=== PATIENT | female | born 1975 | race Caucasian/White ===

== ENCOUNTER 2017-01-29 07:56 | Inpatient (IN) | payer OTHER ==
--- NOTE | ~2017-01-29 | TOC ---
Unit #: [id number] #: [id number] Patient: DAVID GONZALEZ [id number] [address] [address] [id number] I MR#: [id number] NAME: DAVID GONZALEZ ROOM: 57 Age: 41 Sex: F Admission Date: 01/29/2017 : 1975 Attending Physician: Sherif Pack M.D. Primary Care Physician: No Primary Care Physician TRANSFER OF CARE SUMMARY CONSULTANTS 1. Dr. Recio. 2. Dr. Lopez. 3. Dr. Prakash. ADMITTING DIAGNOSES 1. Hyperglycemia. 2. Unresponsive. FURTHER DIAGNOSES 1. Diabetic ketoacidosis. 2. End-stage renal disease. 3. Diabetes type 2, poorly controlled. 4. Hypertension. 5. Hyperlipidemia. HISTORY OF PRESENT ILLNESS The patient is a 41-year-old lady with a past medical history of diabetes, hypertension, hyperlipidemia, was brought to the emergency room mainly because she unresponsive at the home and was hyperglycemic. Apparently, she ran out of her insulin and she was not on insulin. In the initial hospital evaluation, her pH was noted to be 6.778 with a bicarbonate of 12.3, pCO2 of 12.3, and bicarbonate of 5. Her sugars were (1) . She was admitted to the ICU. She was intubated, started on the DKA protocol. Her creatinine was noted to be elevated. Renal was consulted. She ended up undergoing dialysis. She got a Shiley catheter placed and she is currently on dialysis. In the hospital course, she also had a bronchoscopy done. Cultures were all negative. At this point, we are trying to arrange for outpatient hemodialysis slot. Hepatitis panels were sent and we do not have an outpatient dialysis slot. Once we have a dialysis slot arranged, she will be discharged. Kindly note, a final discharge summary will be dictated by me or my colleagues at the time of actual discharge. Dictated by... Sherif Pack M.D. VALERIE/zoe TD: 02/06/2017 15:19 Unit #: [id number] #: [id number] Patient: DAVID GONZALEZ JOB #: [id number] TRANSFER OF CARE SUMMARY Page 1 of 1 X X TRANSFER OF CARE SUMMARY
--- NOTE | ~2017-01-29 | FU ---
[facility] Nutrition Therapy DATE: 02/03/17 Patient: DAVID GONZALEZ Physician: VIRIDIANA Address: [address] Room/Bed: [address] [place] [address], Zip: [place] [address] Admit Date: 01/29/17 Date of : [birth year] Height: 5 6 Weight: 231 105.2 NUTRITION MONITORING/FOLLOW-UP: Reason: Nutrition follow-up Anthropometrics: Ht: 5'6" Adm wt: 100 kg (220#) BMIL 35.5 Current wt: 105 kg (231#) Labs: Gluc 180, BUN 25, Creat 5.7, GFR 8.6, Ca++ 8.3, HgbA1c 10.9, POC 164 Meds: Levemir, Pepcid, Novolog, Zofran, NaCl, Levaquin I&O's: 218/2225, last BM 02/03 Skin: no skin issues noted Edema: BUE/BLE trace Assessment: Chart reviewed, events noted. Pt was transferred from ICU to / yesterday (02/02). Per VIDEO GAMES MECHANIC eval, pt is on a regular diet + nectar thick liquids. Pt reported not feeling well today and poor appetite. Pt reported consuming snack foods for VIDEO GAMES MECHANIC eval and feeling full/nauseous after. RD design intern encouraged slowly adding food back into diet as tolerated. RD design intern encouraged a Nepro shake, pt agreed. Pt had no diet questions at this time. Nutrition problem remains the same with new evidence. See recommendations below. Dx: Inadequate oral intake RT current condition, not feeling well AEB pt report. -ACTIVE Intervention: 1. Nepro BID 2. Consistent carb diet Monitoring, Evaluation and Goals: NOT MET 1. PO intake; consume >75% of meals and supplements 2. Labs; WNL 3. Weight; prevent unintentional weight loss, promote gradual weight loss Recommendations: 1. Please order Nepro shakes BID. 2. Recommend changing diet order to consistent carb d/t elevated blood glucose levels. Status: Pt is at a mild nutritional risk. [facility] Nutrition Therapy DATE: 02/03/17 Patient: DAVID GONZALEZ Physician: VIRIDIANA Address: [address] Room/Bed: [address] [place] [address], Zip: [place] [address] Admit Date: 01/29/17 Date of : [birth year] Height: 5 6 Weight: [address] will f/u per protocol. Respectfully, Nuria Tomlinson, Admin Prog Coord Paul Lawler MS, RD, LD [facility] and Nutrition[facility] cc: client file
--- NOTE | ~2017-01-29 | OR ---
Unit #: [id number] #: [id number] Patient: DAVID GONZALEZ [id number] [address] [address] [id number] I MR#: [id number] NAME: DAVID GONZALEZ ROOM: [facility] Date of Procedure: Admission Date: 01/29/2017 Surgeon: Cody Lopez M.D. : 1975 Attending Physician: Ana Rosa Fountain M.D. Primary Care Physician: No Primary Care Physician PROCEDURE OPERATIVE NOTE PROCEDURE PERFORMED Dialysis catheter placement. INDICATIONS Renal failure. PREPROCEDURE DIAGNOSIS Renal failure. POSTPROCEDURE DIAGNOSIS Renal failure. DETAIL OF PROCEDURE After placing patient in proper position, we prepped the right side of the neck with ChloraPrep with the use of all aseptic technique and modified Seldinger technique. Under ultrasound guidance, a 16 cm dialysis catheter placed in the right internal jugular vein. Patient tolerated procedure very well. No complications happened. Dictated by... Tra Daniels/zoe TD: 01/29/2017 16:50 JOB #: [id number] PROCEDURE OPERATIVE NOTE Page 1 of 1 X Cody Lopez MD X PROCEDURE OPERATIVE NOTE
--- NOTE | ~2017-01-29 | DS ---
Unit #: [id number] #: [id number] Patient: DAVID GONZALEZ [id number] [address] [place], [place] [address] [id number] Ronny MR#: [id number] NAME: DAVID GONZALEZ ROOM: 577 Age: 41 Sex: F Admission Date: 01/29/2017 : 1975 Discharge Date: Attending Physician: Sherif Pack M.D. DISCHARGE SUMMARY ADDENDUM DATE OF ANTICIPATED DISCHARGE February 09, 2017 Kindly note, I did an interim discharge summary a couple of days ago, and this is an addendum to the discharge summary. Today, I spoke with Nephrology attending, and I spoke with the cyanide case hardener. They are getting close to arranging for outpatient dialysis slot. Once the dialysis slot is arranged, will discharge her home. I spoke with patient at length and explained to her that she needs to follow with Nephrology and Endocrinology as an outpatient, and she needs to take her medications for diabetes and high blood pressure on a regular basis. She is clinically better. PHYSICAL EXAMINATION ON DAY OF DISCHARGE VITAL SIGNS: Temperature 97.9, pulse rate 65, respirations 16, and blood pressure 140/68. GENERAL: Patient is alert and oriented x3, lying in the bed in no acute distress. HEENT: Normocephalic and atraumatic. No icterus. Pupils are equal, round, and reactive to light and accommodation. Extraocular muscles intact. NECK: Supple. No JVD. HEART: S1 and S2, regular rate and rhythm. CHEST: Bilateral equal air entry, clear to auscultation. ABDOMEN: Soft and nontender. EXTREMITIES: No edema. Normal peripheral pulses. DISCHARGE MEDICATIONS 1. Levemir 15 units twice daily. 2. Aspart 5 units 3 times daily before meals. 3. Lasix 40 mg daily. 4. Pepcid 20 mg p.o. daily. 5. Nephrocaps 1 capsule p.o. daily. FOLLOWUP With dialysis, Nephrology, Endocrinology, and primary care as an outpatient once she is discharged. Unit #: [id number] #: [id number] Patient: DAVID GONZALEZ Total time spent in her care 35 minutes. Dictated by... Sherif Pack M.D. PS/am TD: 02/09/2017 21:46 JOB #: [id number] DISCHARGE SUMMARY Page 1 of 1 X X DISCHARGE SUMMARY
--- NOTE | ~2017-01-29 | CR72 ---
[facility] A Service of [facility] RADIOLOGY TEXT RESULTS PATIENT: DAVID GONZALEZ LOCATION: [address] : [birth year] UNIT #: [id number] AGE: [address]: Ana Rosa Fountain MD SEX: F ORDER DR: [id number] [facility] [address] [facility] [place] [facility]. [place], [place] [address] [id number] I MR#: [id number] Acc #: [id number] NAME: DAVID GONZALEZ : 1975 SEX: F STUDY DATE/TIME: 01/29/2017 9:07 UNIT: [facility] ROOM: [facility] STUDY DESCRIPTION: CR Chest Single View Portable Attending Physician: Ana Rosa Fountain M.D. Ordering Physician: Terrell Regalado D.O. Primary Care Physician: Primary Care Physician No MEDICAL IMAGING REPORT This report is preliminary unless electronic signature is present EXAM Portable chest one-view date of study 01/29/2017 COMPARISON None HISTORY Short of air and weakness for 1 day. FINDINGS Low lung volumes and borderline to mild cardiomegaly. Peripheral patchy consolidation in the left mid lung and probably as well as at right lateral lung base though that is at the margin of the exam. No pneumothorax. Dictated by... Viraj Mesa M.D. THIS IS AN ELECTRONICALLY VERIFIED REPORT Viraj Mesa M.D. at 01/29/2017 3:49 PM TEV/salomón TD: 01/29/2017 11:44 JOB #: [id number] MEDICAL IMAGING REPORT Page 1 of 1 COPY
--- NOTE | ~2017-01-29 | CR7 ---
[facility] A Service of [facility] RADIOLOGY TEXT RESULTS PATIENT: DAVID GONZALEZ LOCATION: [facility] 577-01 : [birth year] UNIT #: [id number] AGE: [address]: Sherif Pack MD SEX: F ORDER DR: [id number] [facility] [address] [facility] [address] [place], [place] [address] [id number] I MR#: [id number] Acc #: [id number] NAME: DAVID GONZALEZ : 1975 SEX: F STUDY DATE/TIME: 01/29/2017 14:42 UNIT: [facility] ROOM: [facility] STUDY DESCRIPTION: CR Abdomen Single AP View Attending Physician: Ana Rosa Fountain M.D. Ordering Physician: Cody Lopez M.D. Primary Care Physician: No Primary Care Physician MEDICAL IMAGING REPORT This report is preliminary unless electronic signature is present EXAM Supine radiograph of the abdomen 01/29/2017. HISTORY Dobbhoff tube placement today. FINDINGS Supine radiograph of the abdomen is presented. The flexible feeding tube terminates at the anticipated location of duodenal bulb or proximal second portion of duodenum. Lung bases unremarkable. The bowel gas pattern normal. No free air. Bony structures unremarkable. Dictated by... Juan José Epps M.D. THIS IS AN ELECTRONICALLY VERIFIED REPORT Juan José Epps M.D. at 02/03/2017 10:59 AM NATALIE/kaz TD: 01/29/2017 16:21 JOB #: [id number] MEDICAL IMAGING REPORT Page 1 of 1 COPY
--- NOTE | ~2017-01-29 | US77 ---
[facility] A Service of [facility] & [facility] RADIOLOGY TEXT RESULTS PATIENT: DAVID GONZALEZ LOCATION: [facility] 577-01 : [birth year] UNIT #: [id number] AGE: [address]: Sherif Pack MD SEX: F ORDER DR: [id number] [facility] [address] [place], [place] [address] [id number] I MR#: [id number] Acc #: [id number] NAME: DAVID GONZALEZ : 1975 SEX: F STUDY DATE/TIME: 02/05/2017 15:08 UNIT: [facility] ROOM: [facility] STUDY DESCRIPTION: US Kidney Bilateral Complete Attending Physician: Sherif Pack M.D. Ordering Physician: Sherif Pack M.D. Primary Care Physician: No Primary Care Physician MEDICAL IMAGING REPORT This report is preliminary unless electronic signature is present EXAM Renal ultrasound 02/05/2017 HISTORY Acute renal failure, abnormal renal function tests. Elevated creatinine of 5.3. Abnormally low GFR of 9.4 on 02/05/2017, diabetic shock for 1 week. Benign essential hypertension, hyperlipidemia. FINDINGS The right kidney measures 14.9 cm while the left kidney measures 14.4 cm in longitudinal dimensions. There is no evidence of hydronephrosis or nephrolithiasis. No cystic or solid mass lesions were seen on either kidney and there is normal renal cortical echogenicity. Images of the bladder are normal. IMPRESSION 1. Negative renal ultrasound. 2. Images of the bladder are normal. Dictated by... Alvaro Cali M.D. THIS IS AN ELECTRONICALLY VERIFIED REPORT Alvaro Cali M.D. at 02/06/2017 3:38 PM ITZEL/juan mr TD: 02/05/2017 19:30 JOB #: [id number] MEDICAL IMAGING REPORT Page 1 of 1 COPY
--- NOTE | ~2017-01-29 | FU ---
[facility] Nutrition Therapy DATE: 02/10/17 Patient: DAVIDChiara GONZALEZ Physician: VIRIDIANA Address: [address] Room/Bed: [address] [place] [address], Zip: [place] [address] Admit Date: 01/29/17 Date of : [birth year] Height: 5 6 Weight: 221 100.5 NUTRITION MONITORING/FOLLOW-UP: Reason: PT SEEN FOR FOLLOW-UP DX: DIABETIC, DKA, AMS, JUNO Anthropometrics: 5'6", WT: 221# (100 KG), BMI: 35.7 -WEIGHTS HAVE BEEN STABLE SINCE ADMIT Labs: GLU: 238, CREAT: 5.7, ALB: 2.6, PHOS: 4.8, A1c: 10.8, GFR: 8.6 Meds: LEVEMIR, PEPCID, NOVOLOG, NEPHROCAPS, FUROSEMIDE I&O's: 480/2427 Skin: BLE + RLE TRACE EDEMA; FACE GENERALIZED EDEMA Estimated Nutrition Needs: INCREASED PROTEIN NEEDS 2' PT ON HD Assessment: CHART REVIEWED AND EVENTS NOTED. PT SEEN FOR FOLLOW-UP. PT REPORTS GOOD PO INTAKE AND APPETITE, NO C/O N/V/D. PT REPORTS DRINKING A NEPRO SHAKE DAILY. PT REPORTED NO DIET QUESTIONS AT THIS VISIT (OF NOTE, RD PROVIDED DIET EDUCATION ON 02/04 & 02/05). PLANS IN PLACE FOR PT TO D/C HOME LATER TODAY W/OUTPATIENT HD ARRANGED. RD TO REMAIN AVAILABLE. Dx: INADEQUATE ORAL INTAKE R/T CURRENT CONDITION, NOT FEELING WELL AEB PT REPORT.-RESOLVED NEW DX: ALTERED NUTRIENT UTILIZATION R/T PMH, DX AEB NEED FOR THERAPEUTIC DIET ORDER. Intervention: 1. CC+HH DIET 2. NEPRO SHAKES BID Monitoring, Evaluation and Goals: 1. ORAL INTAKE; PROVIDE >75% OF MEALS AND SUPPLEMENTS W/NO C/O N/V/D-RESOLVED 2. LABS; WNL-ACTIVE 3. WEIGHTS; PREVENT UNTINTENTIONAL WEIGHT LOSS; PROMOTE GRADUAL WEIGHT LOSS-ACTIVE MONITOR: -PO INTAKE/APPETITE -WEIGHTS -SUPPLEMENT INTAKE Recommendations: 1. ENCOURAGE COMPLIANCE OF CURRENT DIET ORDER ABOVE [facility] Nutrition Therapy DATE: 02/10/17 Patient: DAVID GONZALEZ Physician: VIRIDIANA Address: [address] Room/Bed: [facility], Zip: [place] [address] Admit Date: 01/29/17 Date of : [birth year] Height: 5 6 Weight: [address] WILL F/U PER PROTOCOL PT IS MILDLY COMPROMISED Respectfully, CROW VALENTINE MS, RD, LD Food and Nutritional Services [facility] cc: client file
--- NOTE | ~2017-01-29 | CO ---
Unit #: [id number] #: [id number] Patient: DAVID GONZALEZ [id number] [address] [address] [id number] I MR#: [id number] NAME: DAVID GONZALEZ ROOM: [facility] Age: 41 Sex: F Admission Date: 01/29/2017 : 1975 Attending Physician: Ana Rosa Fountain M.D. Primary Care Physician: No Primary Care Physician CONSULTATION REPORT REASON FOR CONSULTATION Critical care management. CHIEF COMPLAINT Hyperglycemia. HISTORY OF PRESENT ILLNESS A 41-year-old female with past medical history of diabetes, hypertension, dyslipidemia who presented to the emergency room with complaint of altered mental status, found to have severe DKA. Currently, in severe diabetic ketoacidosis. I am seeing the patient at the bedside. She is unresponsive and tachypneic. REVIEW OF SYSTEMS Unobtainable. PAST MEDICAL HISTORY 1. Diabetes. 2. Hypertension. 3. Dyslipidemia. PAST SURGICAL HISTORY . SOCIAL HISTORY Lives with her . Smokes a few cigarettes per day. FAMILY HISTORY Positive for hypertension, dyslipidemia. ALLERGIES None. MEDICATIONS 1. Januvia. 2. Lantus. 3. Lisinopril. 4. Pravastatin. 5. Hydrochlorothiazide. PHYSICAL EXAMINATION VITAL SIGNS: Temperature 98, pulse 87, respirations 30, blood pressure 106/70. NEUROLOGIC: Obtunded. Unit #: [id number] #: [id number] Patient: DAVID GONZALEZ CARDIOVASCULAR: S1 plus S2. RESPIRATORY: Bilateral air entry. Bilateral mild rhonchi. GASTROINTESTINAL: Nontender, soft. Bowel sounds positive. DIAGNOSTIC STUDIES LABORATORY: Her glucose is 767, pH is 6.9, bicarbonate 13. Her potassium is 3.4. Her chloride is 112. Her creatinine is 3. Her white count is 37, hemoglobin 12, hematocrit 42, platelet count 310,000. ASSESSMENT 1. Severe diabetic ketoacidosis. 2. Hyperkalemia. 3. Acute kidney injury. 4. Aspiration pneumonia. 5. Sepsis. PLAN Plan is to intubate the patient. Continue aggressive IV hydration, IV insulin for diabetic ketoacidosis protocol. IV antibiotics, bronchodilator, gastrointestinal/deep venous thrombosis prophylaxis. Will require dialysis. Will go ahead and place a Shiley catheter. Thank you very much for consultation. Total critical care time, 75 minutes in direct critical care of this patient. Dictated by... Tra Daniels TD: 01/29/2017 16:35 JOB #: [id number] CONSULTATION REPORT Page 1 of 1 X Cody Lopez MD CONSULTATION REPORT
--- NOTE | ~2017-01-29 | CR72 ---
[facility] A Service of [facility] RADIOLOGY TEXT RESULTS PATIENT: DAVID GONZALEZ LOCATION: [address] : [birth year] UNIT #: [id number] AGE: [address]: Sherif Pack MD SEX: F ORDER DR: [id number] [facility] [address] [facility]. [place], [place] [address] [id number] I MR#: [id number] Acc #: [id number] NAME: DAVID GONZALEZ : 1975 SEX: F STUDY DATE/TIME: 01/29/2017 17:33 UNIT: [facility] ROOM: [facility] STUDY DESCRIPTION: CR Chest Single View Portable Attending Physician: Sherif Pack M.D. Ordering Physician: Cody Lopez M.D. Primary Care Physician: Primary Care Physician No MEDICAL IMAGING REPORT This report is preliminary unless electronic signature is present EXAM Portable chest HISTORY Endotracheal tube placement; Shiley catheter placement. COMPARISON 01/29/2017 earlier in the day TECHNIQUE Single view of the chest was obtained. FINDINGS Both the endotracheal tube and Shiley catheter appear in satisfactory position. The endotracheal tube tip is 2 cm above the akosua. No evidence of pneumothorax. No new infiltrates are seen since the previous examination earlier in the day. Jtu-wj-xidqd lung field infiltrates bilaterally are again noted. STAT * RESULT Dictated by... Salty Holcomb M.D. THIS IS AN ELECTRONICALLY VERIFIED REPORT Salty Holcomb M.D. at 01/30/2017 10:15 AM LUCITA/kaz TD: 01/29/2017 17:53 JOB #: [id number] [facility] A Service of [facility] RADIOLOGY TEXT RESULTS PATIENT: DAVID GONZALEZ [address] : [birth year] UNIT #: [id number] AGE: [address]: Sherif Pack MD SEX: F ORDER DR: MEDICAL IMAGING REPORT Page 1 of 1 COPY
--- NOTE | ~2017-01-29 | OR ---
Unit #: [id number] #: [id number] Patient: DAVID GONZALEZ [id number] [address] [address] [id number] I MR#: [id number] NAME: DAVID GONZALEZ ROOM: [facility] Date of Procedure: 01/31/2017 Admission Date: 01/29/2017 Surgeon: Cody Lopez M.D. : 1975 Attending Physician: Sherif Pack M.D. Primary Care Physician: Griselda Primary Care Physician PROCEDURE OPERATIVE NOTE PREOPERATIVE DIAGNOSIS Pneumonia. POSTOPERATIVE DIAGNOSIS Pneumonia. PROCEDURE PERFORMED Diagnostic bronchoscopy. INDICATION Pneumonia. PROCEDURE After taking consent from the patient's family, explaining risks and benefits. The patient was placed in proper position, bronchoscope introduced with an endotracheal tube, which was sitting well above the akosua. We examined the right upper, right middle, right lower lobe, left upper lobe, lingula and left lower lobe. No endobronchial lesion was found. There was thick mucoid secretion, which was therapeutically suctioned and then we did a bronchioalveolar lavage in the right lower lobe area with 100 mL of saline and 20 mL back. The patient tolerated the procedure very well. No complication happened. Dictated by... Tra Daniels/margaux TD: 02/01/2017 14:13 JOB #: [id number] Unit #: [id number] #: [id number] Patient: DAVID GONZALEZ PROCEDURE OPERATIVE NOTE Page 1 of 1 X Cody Lopez MD X PROCEDURE OPERATIVE NOTE
--- NOTE | ~2017-01-29 | EKG ---
PATIENT: DAVID GONZALEZ UNIT #: [id number] Ventricular Rate: 116 BPM Atrial Rate: 116 BPM P-R Interval: 136 ms QRS Duration: 74 ms Q-T Interval: 312 ms QTC Calculation(Bezet): 433 ms P Guion: 64 degrees Calculated R Guion: 39 degrees Calculated T Guion: 6 degrees Diagnosis Line: Sinus tachycardia Diagnosis Line: Otherwise normal ECG Diagnosis Line: When compared with ECG of 29-JAN-2017 09:03, Diagnosis Line: Nonspecific T wave abnormality now evident in Diagnosis Line: Lateral leads Diagnosis Line: Confirmed by CARLITA FRANCIS MD ([id number]) on 02/01/2017 Diagnosis Line: 10:48:02 PM INTERPRETING MD: PENNY CROOK
--- NOTE | ~2017-01-29 | CR72 ---
[facility] A Service of [facility] RADIOLOGY TEXT RESULTS PATIENT: DAVID GONZALEZ LOCATION: [place] [address] : [birth year] UNIT #: [id number] AGE: [address]: Sherif Pack MD SEX: F ORDER DR: [id number] [facility] [address] [facility]. [place], [place] [address] [id number] I MR#: [id number] Acc #: [id number] NAME: DAVID GONZALEZ : 1975 SEX: F STUDY DATE/TIME: 02/02/2017 4:42 UNIT: [facility] ROOM: [facility] STUDY DESCRIPTION: CR Chest Single View Portable Attending Physician: Sherif Pack M.D. Ordering Physician: Cody Lopez M.D. Primary Care Physician: Primary Care Physician No MEDICAL IMAGING REPORT This report is preliminary unless electronic signature is present EXAM AP portable chest 02/02/2017 HISTORY Shortness of breath, diabetic ketoacidosis and pain. Symptoms have been present since 01/29/2017. COMPARISON AP portable chest 02/01/2017. FINDINGS Endotracheal tube and the Dobbhoff tube have been removed. A right IJ central line remains in place. No visible pneumothorax. There is stable mild generalized cardiomediastinal enlargement. Mild ill-defined bibasilar infiltrates persist and do not appear appreciably changed. No dense lung consolidations are identified. No pleural effusion is seen. IMPRESSION 1. Ill-defined bibasilar infiltrates are unchanged. 2. ET tube and Dobbhoff tube have been removed. No visible pneumothorax. Dictated by... Fidelia Hyatt M.D. THIS IS AN ELECTRONICALLY VERIFIED REPORT Fidelia Hyatt M.D. at 02/03/2017 9:59 PM DOREEN/dmitry TD: 02/02/2017 08:33 JOB #: [id number] [facility] A Service of [facility] RADIOLOGY TEXT RESULTS PATIENT: DAVID GONZALEZ LOCATION: [facility] 577-01 : [birth year] UNIT #: [id number] AGE: [address]: Sherif Pack MD SEX: F ORDER DR: MEDICAL IMAGING REPORT Page 1 of 1 COPY
--- NOTE | ~2017-01-29 | CR72 ---
[facility] A Service of [facility] RADIOLOGY TEXT RESULTS PATIENT: DAVID GONZALEZ LOCATION: [facility] 577-01 : [birth year] UNIT #: [id number] AGE: [address]: Sherif Pack MD SEX: F ORDER DR: [id number] [facility] [address] [facility] [place], [place] [address] [id number] I MR#: [id number] Acc #: [id number] NAME: DAVID GONZALEZ : 1975 SEX: F STUDY DATE/TIME: 01/30/2017 4:10 UNIT: [facility] ROOM: [facility] STUDY DESCRIPTION: CR Chest Single View Portable Attending Physician: Ana Rosa Fountain M.D. Ordering Physician: Cody Lopez M.D. Primary Care Physician: Primary Care Physician No MEDICAL IMAGING REPORT This report is preliminary unless electronic signature is present EXAM Chest x-ray 01/30/2017 HISTORY Respiratory failure. Patient on ventilator. Follow up cardiopulmonary status. TECHNIQUE AP portable chest x-ray. FINDINGS There has been no change since yesterday. Endotracheal tube and right IJ Shiley catheter remain in good position. Feeding tube below the diaphragm. Diffusely increased interstitial markings, unchanged. No dense airspace consolidation or visible pleural effusion. IMPRESSION Stable portable chest x-ray, unchanged since yesterday. Dictated by... Oswald Mandel M.D. THIS IS AN ELECTRONICALLY VERIFIED REPORT Oswald Mandel M.D. at 02/04/2017 9:15 AM VIANEY/dmitry TD: 01/30/2017 06:30 JOB #: [id number] MEDICAL IMAGING REPORT Page 1 of 1 COPY
--- NOTE | ~2017-01-29 | CR72 ---
[facility] A Service of [facility] & [facility] RADIOLOGY TEXT RESULTS PATIENT: DAVID GONZALEZ LOCATION: [address] : [birth year] UNIT #: [id number] AGE: [address]: Sherif Pack MD SEX: F ORDER DR: [id number] [facility] [address] [place], [place] [address] [id number] I MR#: [id number] Acc #: [id number] NAME: DAVID GONZALEZ : 1975 SEX: F STUDY DATE/TIME: 02/01/2017 3:36 UNIT: [facility] ROOM: [facility] STUDY DESCRIPTION: CR Chest Single View Portable Attending Physician: Sherif Pack M.D. Ordering Physician: Sherif Pack M.D. Primary Care Physician: Primary Care Physician No MEDICAL IMAGING REPORT This report is preliminary unless electronic signature is present EXAM AP portable chest, 02/01/2017 at 03:36 HISTORY Respiratory failure, on a ventilator. Found unresponsive. Symptoms began 01/29/2017. COMPARISON AP portable chest, 01/31/2017 FINDINGS Mild asymmetric elevation of the left diaphragm. Right IJ central line, ET tube and Dobbhoff tube appear stable. No pneumothorax is visible. Mild bibasilar infiltrates, again noted, with probable slight improved aeration of the left lower lobe since the prior exam. No pleural effusion or pneumothorax. IMPRESSION Ill-defined bibasilar infiltrates with slight improved aeration in the left lower lobe compared to 1 day prior. Dictated by... Fidelia Hyatt M.D. THIS IS AN ELECTRONICALLY VERIFIED REPORT Fidelia Hyatt M.D. at 02/01/2017 10:02 PM DOREEN/jacqueline TD: 02/01/2017 09:36 JOB #: [id number] MEDICAL IMAGING REPORT Page 1 of 1 COPY
--- NOTE | ~2017-01-29 | XA93 ---
[facility] A Service of [facility] & [facility] RADIOLOGY TEXT RESULTS PATIENT: DAVID GONZALEZ LOCATION: [facility] 577-01 : [birth year] UNIT #: [id number] AGE: [address]: Sherif Pack MD SEX: F ORDER DR: [id number] [facility] [address] [place], [place] [address] [id number] I MR#: [id number] Acc #: [id number] NAME: DAVID GONZALEZ : 1975 SEX: F STUDY DATE/TIME: 02/03/2017 13:56 UNIT: [facility] ROOM: [facility] STUDY DESCRIPTION: XA CVC Tunneled WO Pump/Port Attending Physician: Sherif Pack M.D. Ordering Physician: Sridhar Garber M.D. Primary Care Physician: No Primary Care Physician MEDICAL IMAGING REPORT This report is preliminary unless electronic signature is present EXAM Tunneled dialysis catheter placement INDICATIONS Need for dialysis access in a patient with history of renal failure. The patient was admitted to the hospital on January 29, 2017. TECHNIQUE The procedure was explained to the patient, including risks, benefits, potential complications and potential for alternative forms of treatment. Informed consent was obtained prior to initiating procedure, and a formal time-out procedure was performed using all elements of maximal sterile barrier technique, including hand hygiene, caps, sterile gowns, gloves, and masks. Both sides of the neck were prepped with 2% Chlorhexidine percutaneous antisepsis and covered with a large sterile sheet. Preliminary ultrasound of the right internal jugular vein was performed. This did show some chronic thrombus within it. As a consequence, I turned attention to the left internal jugular vein. This was found be patent and compressible. Hard copy ultrasound image was obtained. After local anesthesia with 1% Xylocaine, the vein was punctured using real-time sterile ultrasound guidance, and an 0.018 guidewire was advanced into the superior vena cava under fluoroscopic guidance. A micropuncture sheath was placed. I then advanced an Amplatz wire through this catheter; however, I was unable to manipulate it into the superior vena cava. At this point, I used a stiff glidewire to advance into the inferior vena cava, and Kumpe catheter was advanced over this wire and positioned within the inferior vena cava. This catheter flushed and aspirated easily upon placement. At this point, the skin and subcutaneous tissues of the left anterolateral chest wall were anesthetized with buffered lidocaine and lidocaine with STS. [facility] A Service of [facility] RADIOLOGY TEXT RESULTS PATIENT: DAVID GONZALEZ LOCATION: [facility] 577-01 : [birth year] UNIT #: [id number] AGE: [address]: Sherif Pack MD SEX: F ORDER DR: epinephrine. A small skin incision was made. The catheter was then tunneled up through the left anterolateral chest wall to the insertion site in the neck. The tract was serially dilated, and a peel-away sheath was advanced over the wire. The tunneled catheter was then advanced through the peel-away sheath and positioned within the right atrium. Following placement, the catheter flushed and aspirated easily. Insertion site at the neck was closed using a single 4-0 Monocryl suture, and the catheter was secured at the skin insertion site with 2 0-Proline sutures. Total fluoroscopically time was 2 minutes. AK was 45 MGy. The patient did receive conscious sedation consisting of 6 mg of Versed and 250 mcg of Fentanyl and continuous monitoring was provided for a total of 80 minutes by the IVR nurse. IMPRESSION Successful placement the left internal jugular vein tunneled dialysis catheter which extends into the right atrium. Ultrasound and fluoroscopy were used during placement of the catheter, and permanent images were saved. Dictated by... Paula Pacheco M.D. THIS IS AN ELECTRONICALLY VERIFIED REPORT Paula Pacheco M.D. at 02/06/2017 8:20 AM YANNICK/kaz TD: 02/04/2017 11:46 JOB #: [id number] MEDICAL IMAGING REPORT Page 1 of 1 COPY
--- NOTE | ~2017-01-29 | OR ---
Unit #: [id number] #: [id number] Patient: DAVID GONZALEZ [id number] [address] [address] [id number] I MR#: [id number] NAME: DAVID GONZALEZ ROOM: [facility] Date of Procedure: Admission Date: 01/29/2017 Surgeon: Cody Lopez M.D. : 1975 Attending Physician: Ana Rosa Fountain M.D. Primary Care Physician: Griselda Primary Care Physician PROCEDURE OPERATIVE NOTE PROCEDURE PERFORMED Endotracheal intubation. INDICATIONS Respiratory failure. PREPROCEDURE DIAGNOSIS Respiratory failure. POSTPROCEDURE DIAGNOSIS Respiratory failure. DETAIL OF PROCEDURE After placing patient in a proper position with help of size 4 (1) laryngoscope, size 8 endotracheal tube passed through the vocal cord without complication. Four milligram of Versed was given for sedation. Patient tolerated procedure very well. No complications happened. Dictated by... Tra Daniels TD: 01/29/2017 16:46 JOB #: [id number] PROCEDURE OPERATIVE NOTE Page 1 of 1 X Cody Lopez MD X PROCEDURE OPERATIVE NOTE
--- NOTE | ~2017-01-29 | A ---
[facility] Nutrition Therapy DATE: 01/30/17 Patient: DAVID GONZALEZ Physician: VIRIDIANA Address: [address] Room/Bed: [address], Zip: [place] [address] Admit Date: 01/29/17 Date of : [birth year] Height: 5 6 Weight: 224 102 NUTRITIONAL ASSESSMENT: REASON: NPO IN ICU ASSESSMENT, ALSO SEEN FOR DX PT IS 41 Y.O. FEMALE ADMITTED FOR DKA, JUNO, AMS PMH: T2DM, HTN, HLD, ETOH USE Anthropometrics: 5'6", WT: 220# (100 KG) (BEDSIDE), BMI: 35.5, 169%IBW -WEIGHTS HAVE RANGED 216-224# SINCE ADMIT Labs: K+:2.9, GLU: 252, CREAT: 2.6, CA+: 7.2, ALB: 2.4, M.3, PHOS: <1.0, A1c: 10.9 (REFLECTS POOR GLUCOSE MANAGEMENT), AMYLASE: 94, GFR: 22.3 Meds: FENTANYL, VERSED, D5%, PROTONIX, ZOFRAN, NACL I/O & Bowel function: 5659/75 Skin Integrity: NO KNOWN SKIN ISSUES Estimated Nutrition Needs: 5792-3781 KCAL (18-22 KCAL/KG BW) 100-120 G PRO (1.0-1.2 G PRO/KG BW) FLUIDS CONSISTENT W/KCAL NEEDS OR MANAGE PER MD Assessment: CHART REVIEWED AND EVENTS NOTED. PT SEEN FOR NPO IN ICU + DX. PT INTUBATED AND SEDATED AT TIME OF VISIT 2' RESP FAILURE, PT ON DKA PROTOCOL. FAMILY IN ROOM REPORT PT TO HAVE DECREASED PO INTAKE AND APPETITE PAST 2 DAYS 2' N/V/ABD PAIN. FAMILY ADDS PT HAS NORMAL GOOD PO INTAKE AND APPETITE. PER RN AND CHART, PLANS FOR HD, BUT NO CURRENT PLANS IN PLACE FOR ALTERNATIVE NUTRITION SUPPORT AT THIS TIME. RD TO FOLLOW. SEE RECOMMENDATIONS BELOW. FAMILY REPORTED NO DIET QUESTIONS AT THIS TIME. Dx: INADEQUATE ORAL INTAKE R/T DX, INTUBATION AEB NPO STATUS. Intervention: 1. NPO Monitoring, Evaluation and Goals: 1. ENTERAL NUTRITION; PROVIDE ~80-100% ESTIMATED NUTRIENT NEEDS AT GOAL X 24 HOURS 2. ORAL INTAKE; ADVANCE DIET PER BAKERY ASSISTANT/TOLERATE MEALS W/NO C/O N/V/D (PO>50%) 3. LABS; WNL: GLU, ELECTROLYTES 4. WEIGHTS; PROMOTE GRADUAL WEIGHT LOSS MONITOR: [facility] Nutrition Therapy DATE: 01/30/17 Patient: DAVID GONZALEZ Physician: VIRIDIANA Address: [address] Room/Bed: [address], Zip: [place] [address] Admit Date: 01/29/17 Date of : [birth year] Height: 5 6 Weight: 224 102 -WEIGHTS -PLANS FOR SUPPORT -LABS -EXTUBATION? Recommendations: 1. ONCE MEDICALLY FEASIBLE AND PT EXTUBATED, ADVANCE DIET PER BAKERY ASSISTANT + CC+HH DIET 2. IF PT REMAINS INTUBATED FOR >24 HOURS, PLACE DHT AND BEGIN ALTERNATIVE NUTRITION SUPPORT OF GLUCERNA 1.5 @ 20 ML/HR, ADVANCE 10 ML q 4 HOURS TO GOAL RATE OF 55 ML/HR -PROVIDES 1980 KCAL, 109 G PRO, 1003 ML FREE H20 ADD FREE H20 FLUSHES PER MD 3. IF PT'S ELECTROLYTES (PHOS, K+) BECOME ELEVATED, RECOMMEND ENTERAL NUTRITION SUPPORT OF NEPRO @ 20 ML/HR, ADVANCE 10 ML q 4 HOURS TO GOAL RATE OF 45 ML/HR + 30 ML SUGAR-FREE PROSTAT ONCE DAILY -TOTAL PROVIDES 2044 KCAL, 102 G PRO, [address] WILL F/U PER PROTOCOL PT IS SEVERELY COMPROMISED Respectfully, CROW VALENTINE MS, RD, LD [facility] cc: client file
--- NOTE | ~2017-01-29 | FU ---
[facility] Nutrition Therapy DATE: 02/04/17 Patient: DAVID GONZALEZ Physician: VIRIDIANA Address: [address] Room/Bed: [address] [place] [address], Zip: [place] [address] Admit Date: 01/29/17 Date of : [birth year] Height: 5 6 Weight: 234 106.2 NUTRITION MONITORING/FOLLOW-UP: Reason: CONSULT RE: DM EDUCATION RD PROVIDED WRITTEN AND VERBAL CC DIET EDUCATION. RD PROVIDED LIST OF FOODS TO AVOID/LIMIT AND FOODS TO EAT MORE OFTEN. RD ALSO EMPHASIZED IMPORTANCE OF ESTABLISHING A CONSISTENT MEAL SCHEDULE W/BALANCED MEALS AND SNACKS. RD ALSO EMPHASIZED IMPORTANCE OF LIMITING SUGAR-SWEETENED BEVERAGES. PT REPORTS CONSUMING TEA DAILY AND WILLING TO CUT BACK/DRINK MORE WATER. PT AND FAMILY IN ROOM DEMONSTRATED UNDERSTANDING OF THE TOPIC. PT AND FAMILY REPORTED NO DIET QUESTIONS AT THIS TIME. RD TO REMAIN AVAILABLE RD WILL F/U PER PROTOCOL Respectfully, CROW VALENTINE MS, RD, LD [facility] Nutrition[facility] Services [facility] cc: client file
--- NOTE | ~2017-01-29 | CT71 ---
[facility] A Service [facility] RADIOLOGY TEXT RESULTS PATIENT: DAVID GONZALEZ LOCATION: CIC[facility]2 CICCU11-09 : [birth year] UNIT #: [id number] AGE: [address]: Sherif Pack MD SEX: F ORDER DR: [id number] [facility] [address] [place], [place] [address] [id number] MR#: [id number] Acc #: [id number] NAME: DAVID GONZALEZ : 1975 SEX: F STUDY DATE/TIME: 01/29/2017 9:31 UNIT: PAT ROOM: STUDY DESCRIPTION: CT Head Wo Contrast Attending Physician: Terrell Regalado D.O. Ordering Physician: Terrell Regalado D.O. Primary Care Physician: Isaias Not Listed MEDICAL IMAGING REPORT This report is preliminary unless electronic signature is present EXAM Noncontrast CT head. DATE 01/29/2017 HISTORY 33-year-old female with hyperglycemia. Found down and unresponsive at home. Encephalopathy. Hypertension. Diabetes. Abdominal pain today. COMPARISON STUDIES None TECHNIQUE This CT exam was performed with one or more of the following radiation dose reduction techniques: automatic exposure control, adjustment of mA and/or kV according to patient size, and iterative reconstruction. FINDINGS Several of the images are degraded by patient motion. Allowing for this limitation, no gross acute intracranial hemorrhage, mass lesion, mass effect, midline shift or evidence of acute or evolving infract is identified. There is a large left maxillary sinus, mild right maxillary sinus mucosal thickening. Mild right frontal sinus mucosal thickening. Mastoid air cells are clear. No acute calvarial abnormality is identified. IMPRESSION 1. Left greater than right maxillary sinus disease. 2. No acute intracranial findings. 3. Motion degradation. [facility] A Service [facility] RADIOLOGY TEXT RESULTS PATIENT: DAVID GONZALEZ LOCATION: CICCU2 CICCU2 : [birth year] UNIT #: [id number] AGE: [address]: Sherif Pack MD SEX: F ORDER DR: Dictated by... Fidelia Hyatt M.D. THIS IS AN ELECTRONICALLY VERIFIED REPORT Fidelia Hyatt M.D. at 01/31/2017 12:05 AM DOREEN/benjamin TD: 01/29/2017 12:32 JOB #: [id number] MEDICAL IMAGING REPORT Page 1 of 1 COPY
--- NOTE | ~2017-01-29 | CO ---
Unit #: [id number] #: [id number] Patient: DAVID GONZALEZ [id number] [address] [address] [id number] I MR#: [id number] NAME: DAVID GONZALEZ ROOM: [facility] Age: 41 Sex: F Admission Date: 01/29/2017 : 1975 Attending Physician: Ana Rosa Fountain M.D. Consultation Date: 01/29/2017 CONSULTATION REPORT REASON FOR CONSULT Acute kidney injury, hyperkalemia, and diabetic ketoacidosis. HISTORY OF PRESENT ILLNESS Mrs. Gonzalez is a 41-year-old female who was brought in for a change in mental status and hyperglycemia and is not able to give any history at this time. All of the history was obtained from the chart, nursing, and the patient's . He states that he recently found out that she had been out of insulin and not taking any for some time. Certainly, her hemoglobin A1c confirms this. Patient had been feeling poorly over the last day or so with significant nausea and vomiting. She apparently had not had any diarrhea. There was no blood in the vomitus. Patient's stated that she mentioned she did feel some chills last night but did not have any documented fevers at home. She became more and more ill and confused and then unresponsive bringing her to the emergency room. There, she was found to have severe acidosis and hyperkalemia with a blood sugar of 928. She was treated emergently for her electrolyte problems with fluids, bicarbonate, and calcium chloride, and was started on insulin. I was asked to see for the electrolyte issues and the acute kidney injury. Patient is noted to be on lisinopril and hydrochlorothiazide at home. The patient's states that she sees Dr. Masterson for her diabetes, and he is unaware of any kidney issues associated with her diabetes. She does not use any NSAIDS. She has no history of kidney stones that he is aware of. There has been no hematuria here in the hospital. Her response to the fluids has been good as far as urine output goes this afternoon. PAST MEDICAL HISTORY 1. Insulin-dependent diabetes. 2. Hypertension. 3. Hyperlipidemia. 4. Tobacco abuse. 5. Regular alcohol use. PAST SURGICAL HISTORY section. HOME MEDICATIONS 1. Januvia. 2. Lantus. 3. Lisinopril. 4. Pravastatin. 5. Hydrochlorothiazide. Unit #: [id number] #: [id number] Patient: DAVID GONZALEZ ALLERGIES None listed at this time. FAMILY HISTORY Patient's states that there is an uncle that he believes is diabetic and has advanced kidney disease. Her parents have hypertension. SOCIAL HISTORY She is . She smokes a couple of cigarettes per day. Patient's states that she drinks between one and three beers every day. REVIEW OF SYSTEMS A complete 12-point review of systems was completed with the above findings. Further review of systems was limited due to her impaired mental status. Again, there has been no hematuria, no rashes, no itching. She was not complaining of any flank pain before coming in. Nausea and vomiting seem to have abated here with therapy. Unless otherwise indicated, the review of systems was negative. PHYSICAL EXAMINATION VITAL SIGNS: Temperature 97, pulse 115, respiratory rate 30, and blood pressure 106/70. Blood pressure was as low as 74/33. I/Os: I was told verbally that the patient has made about a liter of urine this afternoon. GENERAL: This is a 41-year-old female, lethargic, with impaired mental status and tachypneic. HEENT: Head is atraumatic and normocephalic. Eyes show pink conjunctivae. No scleral icterus. No nasal drainage or nosebleed. Oropharynx is dry. NECK: Thick with no JVD. HEART: Tachycardic and regular with no gallop or rub appreciated. LUNGS: Some scattered expiratory wheezing. Breathing rate is tachypneic. She is mildly labored. ABDOMEN: Protuberant, soft, and nontender, with no rebound or guarding. EXTREMITIES: No lower extremity cyanosis or pitting edema. SKIN: Dry without rashes. GENITOURINARY: Campbell catheter is in place with nonbloody urine. MUSCULOSKELETAL: No joint effusions noted. NEUROLOGICAL: Deferred. PSYCHIATRIC: Unable to do. LYMPHATICS: No neck cervical lymphadenopathy. DIAGNOSTIC STUDIES LABORATORY: Last blood sugar was 612 and magnesium 2.5. Blood gas that just came back at 2:15 showed a pH of 6.9, PCO2 of 13.8, PO2 of 87, and bicarb was just 3.2. CK level was 623. Chemistry at noon showed a sodium of 138, potassium had improved down to 3.4, chloride 112 and bicarb 5 for an anion gap of 21, glucose was 743 at that time, and BUN and creatinine 41 and 3, respectively. Lactic acid was 1. Troponin negative. Procalcitonin was 21. Hemoglobin A1c came back at 10.9. Phosphorus of 8. Amylase and lipase were 149 and 114, respectively, which is high. Beta hydroxybutyrate was high at 10.9. Earlier potassium was 7.5 with a bicarb less than 5. Tylenol, salicylate, and alcohol were negative. Initial CBC showed a white count of 37, hemoglobin 12.8, and platelet count 310,000 with a left shift. Urine drug screen was negative. Urinalysis did show 1+ protein and no significant blood with some hyaline casts. Initial ABG showed a pH of 6.77, PCO2 of 12, PO2 of 117, and bicarb 1.8. No prior creatinines to compare these to. Unit #: [id number] #: [id number] Patient: DAVID GONZALEZ IMAGING: Chest x-ray done earlier was consistent with pneumonia. CT of the abdomen and pelvis was done without contrast with findings concerning for pneumonia. Pancreas was normal. Kidneys were unremarkable. CT of the head was negative. ASSESSMENT AND PLAN 1. Acute kidney injury. This looks to be prerenal azotemia versus acute tubular necrosis from significant dehydration from her hyperglycemia and nausea and vomiting. In addition, she was on a diuretic at home, as well as she would have altered renal compensation with her home SANJUANA inhibitor use. Her diuretic and SANJUANA inhibitor have been held. She is getting aggressive fluids and has been urinating since. Unfortunately, her acidosis is not correcting very quickly, and she is still tachypneic, so we will be dialyzing her to correct her acidosis. 2. Hyperkalemia. This is now improved on insulin. The pulmonary team has ordered some potassium replacement. 3. Diabetic ketoacidosis. Patient again ran out of insulin or was not taking it at home for unclear reasons. She is on diabetic ketoacidosis protocol. I did discuss the acidosis issue with the patient's , and he understands the need for dialysis. 4. Hypotension. She is getting a fluid bolus right now, and then we will continue the diabetic ketoacidosis protocol. 5. Pneumonia, on Zosyn. 6. Tobacco use. 7. Regular alcohol use. 8. Elevated CPK level. Her statin has been held, and we will continue fluids. 9. Elevated phosphorus level. I certainly wonder if she does not have some chronic kidney disease with that high of a phosphorus level. 10. The patient is quite ill and prognosis is guarded at this time. I did relay this to the patient's . I have called the acute department for dialysis, and they understand that this is a stat dialysis, and they are sending over a nurse now. Shiley is being placed at this time. I would like to thank Dr. Fountain for this consult and the opportunity to participate in evaluation and care of Mrs. Gonzalez. Dictated by... Adam Recio Jr., MJuju. NAIF/haseeb TD: 01/29/2017 20:33 JOB #: [id number] CONSULTATION REPORT Page 1 of 1 X Adam Recio MD X CONSULTATION REPORT
--- NOTE | ~2017-01-29 | EKG ---
PATIENT: DAVID GONZALEZ UNIT #: [id number] Ventricular Rate: 105 BPM Atrial Rate: 105 BPM P-R Interval: 146 ms QRS Duration: 84 ms Q-T Interval: 392 ms QTC Calculation(Bezet): 518 ms P [place]: 63 degrees Calculated R [place]: 63 degrees Calculated T [place]: 20 degrees Diagnosis Line: Sinus tachycardia Diagnosis Line: Nonspecific ST and T wave abnormality Diagnosis Line: Abnormal ECG Diagnosis Line: No previous ECGs available Diagnosis Line: Confirmed by ELY KEANE MD ([id number]) on Diagnosis Line: 01/30/2017 11:02:30 PM INTERPRETING MD: LIZA
--- NOTE | ~2017-01-29 | CO ---
Unit #: [id number] #: [id number] Patient: DAVID GONZALEZ [id number] [address] [address] [id number] I MR#: [id number] NAME: DAVID GONZALEZ ROOM: [facility] Age: 41 Sex: F Admission Date: 01/29/2017 : 1975 Attending Physician: Ana Rosa Fountain M.D. Primary Care Physician: No Primary Care Physician Consultation Date: 01/29/2017 CONSULTATION REPORT REASON FOR CONSULT Diabetes ketoacidosis. HISTORY OF PRESENT ILLNESS This is a 41-year-old female who I have been asked to see for management of diabetes ketoacidosis. The patient is intubated, sedated. No history is available from the patient. As per medical records, she does have a history of type 2 diabetes mellitus, hypertension, hyperlipidemia. She was brought into the emergency room by her and her father for altered mental status. As per history, she has been having nausea, vomiting, abdominal pain but she had no fever and chills. On arrival in emergency room, she was unresponsive. Her labs showed severe metabolic acidosis with pH of 6.77. Bicarb was only 1.8. Potassium was 7.5. Acute kidney injury with creatinine of 2.9. She was treated with two liters of IV fluids, normal saline, treated with four amps of the bicarb in the ER. She is intubated and transferred to the unit bed. The patient is 'alert' [sic], started on insulin drip. Also, she has been started on hemodialysis this afternoon for her severe metabolic acidosis and hyperkalemia. PAST MEDICAL HISTORY Diabetes diagnosed a few years, hypertension, hyperlipidemia. PAST SURGICAL HISTORY . SOCIAL HISTORY The patient lives with her . She continues to smoke a few cigarettes a day. She drinks one to two drinks, most of the days none. FAMILY HISTORY Noncontributory. ALLERGIES Not listed. MEDICATIONS 1. Januvia. 2. Lantus. 3. Lisinopril. 4. Pravastatin. 5. Hydrochlorothiazide. REVIEW OF SYSTEMS Unit #: [id number] #: [id number] Patient: DAVID GONZALEZ Not obtainable. PHYSICAL EXAMINATION GENERAL APPEARANCE: She is intubated and sedated. VITAL SIGNS: Temperature 97. Pulse 115. Respiration 16. Blood pressure 106/70. Weight 216 lb. HEENT: Pupils are equal and reactive to light. She is intubated on a vent support. NECK: Supple. No thyromegaly noted. CHEST: Good air entry bilaterally with rhonchi. CARDIOVASCULAR: Regular rhythm. S1, S2. ABDOMEN: Obese. Bowel sounds positive. EXTREMITIES: No ulcers noted. DIAGNOSTIC STUDIES LABORATORY: Most recent CMP showed glucose 351, BUN 37, creatinine 2.6, sodium 142, potassium 3.4, chloride 107, CO2 13, calcium 7.6, phosphorous less than one. A1C 11%. Lactic acid 0.9. Ketones positive at 10.9. ASSESSMENT 1. Diabetes. 2. Ketoacidosis. 3. Acute kidney injury on hemodialysis. 4. Hyperkalemia, improved. 5. Respiratory failure on vent support. 6. Hypophosphatemia. PLAN Continue the ventilator support care. Continue hemodialysis. Replace electrolytes as needed. Continue IV hydration with half normal saline with bicarb at 200 mL/hour. Continue insulin drip. The patient is critically ill. We will continue to follow the patient for further management. Dictated by... Tra Canas/steve TD: 01/30/2017 06:39 JOB #: [id number] CONSULTATION REPORT Page 1 of 1 X Ashanti Prakash MD CONSULTATION REPORT
--- NOTE | ~2017-01-29 | CR71 ---
[facility] A Service of [facility] & [facility] RADIOLOGY TEXT RESULTS PATIENT: DAVID GONZALEZ LOCATION: [address] : [birth year] UNIT #: [id number] AGE: [address]: Sherif Pack MD SEX: F ORDER DR: [id number] [facility] [address] [place], [place] [address] [id number] I MR#: [id number] Acc #: [id number] NAME: DAVID GONZALEZ : 1975 SEX: F STUDY DATE/TIME: 01/31/2017 4:02 UNIT: [facility] ROOM: [facility] STUDY DESCRIPTION: CR Chest Single View Attending Physician: Sherif Pack M.D. Ordering Physician: Cody Lopez M.D. Primary Care Physician: No Primary Care Physician MEDICAL IMAGING REPORT This report is preliminary unless electronic signature is present EXAM AP portable chest 01/31/2017 at 0402 HISTORY Respiratory failure. Shortness of breath. COMPARISON AP portable chest 01/30/2017. FINDINGS Left greater than right basilar infiltrates unchanged. Heart size is stable, upper limits normal. ET tube, right IJ central line, and Dobbhoff tube each appear stable. No visible pneumothorax. IMPRESSION 1. Ill-defined bibasilar infiltrates not thought to be significantly changed. 2. Supporting lines and tubes are stable. Dictated by... Fidelia Hyatt M.D. THIS IS AN ELECTRONICALLY VERIFIED REPORT Fidelia Hyatt M.D. at 02/01/2017 4:19 AM DOREEN/mary TD: 01/31/2017 08:23 JOB #: [id number] MEDICAL IMAGING REPORT Page 1 of 1 COPY
--- NOTE | ~2017-01-29 | HP ---
Unit #: [id number] #: [id number] Patient: DAVID GONZALEZ [id number] [facility] [address] [place], [place] [address] [id number] MR#: [id number] NAME: DAVID GONZALEZ ROOM: Age: 41 Sex: F Admission Date: 01/29/2017 : 1975 Attending Physician: Terrell Regalado D.O. Primary Care Physician: Generic Doctor Not In System HISTORY AND PHYSICAL CHIEF COMPLAINT Hyperglycemic, unresponsive from home. HISTORY OF PRESENT ILLNESS The patient is a 41-year-old female with a past medical history of diabetes, hypertension, and hyperlipidemia who presented to the emergency department for evaluation of the above. History is obtained from chart review and discussion with ER staff as well as from the patient's and father who are at the bedside. The patient is unable to provide history due to altered mental status. The patient has not been feeling well since at least yesterday. She has been having nausea, vomiting, and abdominal pain. He reports more than 10 bouts of nonbloody emesis. He states that she had a bowel movement and so was taking MiraLAX; however, she was unable to keep the MiraLAX down. He does not think she had any fever. She has not been checking her blood sugars at home. He states that she seemed somewhat confused yesterday. This morning, she was unresponsive. She was brought to the emergency department for further evaluation. In the emergency department, laboratory notable for pH of 6.778, pCO2 of 12.3, and pO2 of 117 on 2 liters; glucose is 928; bicarb less than 5; potassium 7.5; BUN and creatinine 40 and 2.9, respectively; amylase and lipase are 114 and 149, respectively; and CPK is 542. She was given 2 liters of normal saline as well as 4 amps of sodium bicarb and an amp of calcium chloride. She was also given Zosyn due to chest x-ray showing possible infiltrate. She is being admitted to [facility] for evaluation and further treatment. PAST MEDICAL HISTORY 1. Diabetes diagnosed a few years ago. 2. Hypertension. 3. Hyperlipidemia. PAST SURGICAL HISTORY C section. SOCIAL HISTORY The patient lives with her . She smokes a few cigarettes daily. She has 1-2 drinks most days. She is a homemaker. FAMILY HISTORY Notable for both parents having hypertension. Unit #: [id number] #: [id number] Patient: DAVID GONZALEZ ALLERGIES Not listed. MEDICATIONS Home medications include: 1. Januvia. 2. Lantus. 3. Lisinopril. 4. Pravastatin. 5. Hydrochlorothiazide. REVIEW OF SYSTEMS A complete review of systems is unobtainable from the patient, but negative except as indicated in the HPI per the family. The patient's states that there was no insulin in the refrigerator. It is unclear how long she has been out of insulin. There is some concern that she did not want to burden the family financially with the cost of insulin. DIAGNOSTIC STUDIES IMAGING: Chest x-ray shows possible infiltrate. LABORATORY: Arterial blood gas shows pH of 6.778, pCO2 of 12.3, and pO2 of 117 on 2 liters. Troponin is less than 0.05. Urinalysis notable for 1+ protein, greater than 1000 glucose, 3+ ketones, and 2+ blood. INR is 1. Urine tox screen is negative. Complete blood count notable for white blood cell count of 37.1, MCV is 101. Lactic acid is 1.3. Ammonia level is 111. CPK is 542. Comprehensive metabolic panel notable for sodium of 128; potassium of 7.5; bicarb is less than 5; chloride is 105; glucose 928; BUN and creatinine 40 and 2.9, respectively; calcium is 7.5, but corrects to 8.1 when albumin of 3.3 is accounted for; and alkaline phosphatase is 130. Tylenol, salicylate, and alcohol levels are negative. Amylase and lipase are 114 and 149, respectively. Beta hydroxybutyrate is 10.9. PHYSICAL EXAMINATION VITAL SIGNS: Temperature is 94, pulse 92, respirations 27, blood pressure 74/33 and most recently 114/64, and oxygen saturation is 100% on 2 liters. GENERAL: The patient is a female who is very lethargic. HEENT: The head is atraumatic. Mucous membranes are dry. NECK: Supple. Trachea is midline. CARDIOVASCULAR: Tachycardia in the 110s. LUNGS: Demonstrate a few scattered rhonchi. Breathing is mildly labored. ABDOMEN: Soft with bowel sounds present in all four quadrants. EXTREMITIES: There is no pedal edema. NEUROLOGIC: The patient is lethargic. She opens eyes to pain. She is withdrawing to painful stimuli. PSYCH: Unable to assess. SKIN: Generally cool. ASSESSMENT The patient is a 41-year-old female with: 1. Altered mental status. 2. DKA. The patient received 2 liters of normal saline and is currently on insulin drip. 3. Anion gap metabolic acidosis. 4. Hyperkalemia. The patient received calcium chloride in the emergency department. 5. Acute kidney injury. The patient's creatinine is 2.9 with no Unit #: [id number] #: [id number] Patient: DAVID GONZALEZ for comparison. 6. Aspiration pneumonia. The patient received Zosyn in the emergency department. 7. Sepsis. 8. Early rhabdomyolysis with a CPK of 542. 9. Hypothermia currently on Tommie Hugger. 10. Hyperlipidemia. 11. Tobacco abuse. PLAN 1. Admit to ICU. 2. NPO. 3. DKA protocol with insulin drip. 4. Neuro checks. 5. Strict Is and Os. 6. Consult Dr. Lopez regarding ICU admission. 7. Consult Dr. Garber regarding acute kidney injury. 8. Blood cultures x2. 9. Sputum Culture and sensitivity. 10. Supplemental oxygen. 11. Zosyn 3.375 g IV q.6 hours for aspiration pneumonia. 12. Check a procalcitonin level. 13. DuoNeb q.4 hours p.r.n. 14. Sepsis protocol with repeat lactic acid. 15. Tommie Hugger per protocol. 16. Check CT of the abdomen and pelvis without contrast when stable for further evaluation of abdominal pain and elevated amylase and lipase. 17. Serial cardiac enzymes. 18. 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 19. Repeat labs in the morning including magnesium, phosphorus, INR, CPK, ammonia level, amylase, and lipase. 20. SCDs for DVT prophylaxis. 21. Protonix for GI prophylaxis since the patient will be in the ICU. Thirty-one minutes critical care time spent in the care of this patient (10:55-11:26 a.m.). Dictated by Ana Rosa Fountain M.D. Velma TD: 01/29/2017 11:47 JOB #: [id number] HISTORY AND PHYSICAL Page 1 of 1 X Ana Rosa Fountain MD X HISTORY AND PHYSICAL
--- NOTE | ~2017-01-29 | CT4 ---
[facility] A Service of [facility] & [facility] RADIOLOGY TEXT RESULTS PATIENT: DAVID GONZALEZ LOCATION: CICCU2 CICCU2-05 : [birth year] UNIT #: [id number] AGE: [address]: Ana Rosa Fountain MD SEX: F ORDER DR: [id number] [facility] [address] [place], [place] [address] [id number] E MR#: [id number] Acc #: [id number] NAME: DAVID GONZALEZ : 1975 SEX: F STUDY DATE/TIME: 01/29/2017 UNIT: PAT ROOM: STUDY DESCRIPTION: CT Abd and Pelv Wo Cont Attending Physician: Terrell Regalado D.O. Ordering Physician: Terrell Regalado D.O. Primary Care Physician: Generic Doctor Not In System MEDICAL IMAGING REPORT This report is preliminary unless electronic signature is present EXAM CT abdomen and pelvis without contrast 01/29/2017 0935 hours. HISTORY 41-year-old woman with hyperglycemia, hypertension. Patient found unresponsive at home. Abdominal pain today, encephalopathy. COMPARISON No prior abdomen CT. COMPARISON Portable chest 01/29/2017. TECHNIQUE Helical noncontrasted images were obtained from the lung bases through the pubic symphysis. No oral or intravenous contrast was administered. Total exam DLP 1338 mGy-cm. This CT exam was performed with one or more of the following radiation dose reduction techniques: automatic exposure control, adjustment of mA and/or kV according to patient size, and iterative reconstruction. FINDINGS The images through the lung bases are abnormal. There is peripheral airspace density in the lingula and patchy airspace density in both lower lobes right greater than left. Findings are concerning for pneumonia. There is no pleural effusion. Noncontrasted images through the abdomen demonstrate a normal appearance to the liver and spleen. The pancreas and bile ducts are normal. The gallbladder is contracted. Sludge in the gallbladder cannot be excluded. No definite stones are seen. The adrenal glands are normal. The kidneys demonstrate no mass, stone or obstruction. There is no ureterectasis or ureteral calculus. The bladder contains a Campbell catheter and is decompressed. [facility] A Service of [facility] & [facility] RADIOLOGY TEXT RESULTS PATIENT: DAVID GONZALEZ LOCATION: CICCU2 CICCU2-05 : [birth year] UNIT #: [id number] AGE: [address]: Ana Rosa Fountain MD SEX: F ORDER DR: The stomach is decompressed. There is no wall thickening. There is no small bowel distension or small bowel wall thickening. The cecum, terminal ileum, and appendix are normal. There is moderate stool in the transverse colon only. CT pelvis demonstrates a normal appearance to the uterus and ovaries. There may be a small fibroid in the fundus of the uterus. IMPRESSION 1. There is peripheral airspace density in the lingular segment of the left upper lobe and the right greater than left lower lobe concerning for pneumonia. No pleural effusion is seen. 2. No acute findings are seen in the abdomen or pelvis. The gallbladder is contracted. Sludge may be present. There is no definite stone, wall thickening or pericholecystic fluid. No bile duct dilatation. 3. Normal appendix. 4. No colonic wall thickening is seen. 5. Campbell catheter is present in the bladder. Dictated by... Linda Meyers M.D. THIS IS AN ELECTRONICALLY VERIFIED REPORT Linda Meyers M.D. at 01/29/2017 2:07 PM Leonila TD: 01/29/2017 12:22 JOB #: [id number] MEDICAL IMAGING REPORT Page 1 of 1 COPY
--- NOTE | ~2017-01-29 | FU ---
[facility] Nutrition Therapy DATE: 02/05/17 Patient: DAVID GONZALEZ Physician: VIRIDIANA Address: [address] Room/Bed: [address] [place] [address], Zip: [place] [address] Admit Date: 01/29/17 Date of : [birth year] Height: 5 6 Weight: 231 105 NUTRITION MONITORING/FOLLOW-UP: Reason: CONSULT RE: RENAL + CC DIET EDUCATION RD PROVIDED WRITTEN AND VERBAL CC + RENAL DIET EDUCATION. RD PROVIDED LIST OF FOODS TO AVOID/LIMIT AND FOODS TO EAT MORE OFTEN. RD EMPHASIZED IMPORTANCE OF CONSUMING A VARIETY OF PROTEIN SOURCES TO INCLUDE AT EACH MEAL AND SNACK. PT AND FAMILY DEMONSTRATED UNDERSTANDING OF THE TOPIC. PT REPORTED NO DIET QUESTIONS AT THIS TIME. RD TO REMAIN AVAILABLE. RD TO F/U PER PROTOCOL Respectfully, CROW VALENTINE MS, RD, LD [facility] and Nutrition[facility] Services [facility] cc: client file
[2017-01-29 08:05] LABS: ARTERIAL BLD GAS O2 SATURATION 95.4 % (90.0-100.0); ARTERIAL BLOOD GAS CARBOXY HB 0.9 %sat (0.0-9.0); ARTERIAL BLOOD GAS HCO3 1.8 mmol/L; ARTERIAL BLOOD GAS MET HB 1.1 %sat (0.0-2.0)
[2017-01-29 08:06] LABS: ARTERIAL BLOOD GAS ALLEN TEST NORMAL; ARTERIAL BLOOD GAS ART SITE RIGHT BRACHIAL; ARTERIAL BLOOD GAS DELIVERY NASAL CANNULA; ARTERIAL BLOOD GAS PCO2 12.3 mmHg (35.0-45.0); ARTERIAL BLOOD GAS pH 6.778 (7.350-7.450); ARTERIAL DRAW? YES
[2017-01-29 08:25] LABS: URINE SOURCE CLEAN CATCH
[2017-01-29 08:33] LABS: URINE BILIRUBIN NEG (NEG); URINE BLOOD 2+ (NEG); URINE COLOR YELLOW; URINE GLUCOSE >1000 MG/DL (NEG); URINE KETONE 3+ (NEG); URINE LEUKOCYTE ESTERASE NEG (NEG); URINE NITRATE NEG (NEG); URINE PROTEIN 1+ (NEG); URINE SPECIFIC GRAVITY 1.021 (1.003-1.035); URINE UROBILINOGEN 0.2 MG/DL (NEG)
[2017-01-29 08:35] LABS: POC - CKMB 13.3 ng/mL (0.0-7.9); POC - TROPONIN <0.05 ng/mL (<=0.05)
[2017-01-29 08:36] LABS: CULTURE INDICATED? NO; URBCS1 AUWI 0-2 /[HPF] (0-2); URINE BACTERIA AUWI NEG (NEGATIVE); URINE SQUAMOUS EPITHELIAL CELL OCC /[HPF]; UWBCS1 AUWI 0-2 (0-5)
[2017-01-29 08:46] LABS: BASOPHIL# 0.3 X10e3 (0-0.3); BASOPHIL% 0.7 % (0-2.5); DIFF IND YES; EOSINOPHIL% 0.1 % (0.0-7.0); HEMATOCRIT 42.9 % (35.0-45.0); HEMOGLOBIN 12.8 gm/dL (12.0-16.0); LYMPHOCYTE# 2.9 X10e3 (1.0-3.5); LYMPHOCYTE% 7.8 % (17.0-45.0); MEAN CELL VOLUME 100.1 FL (83-96); MEAN CORPUSCULAR HEMOGLOBIN 29.9 PG (28-34); MEAN CORPUSCULAR HGB CONC 29.8 g/dL (30-36); MEAN PLATELET VOLUME 9.2 FL (6.5-11.5); MONOCYTE# 2.4 X10e3 (0-1.0); MONOCYTE% 6.5 % (3.0-12.0); NEUTROPHIL# 31.5 X10e3 (1.5-7.1); NEUTROPHIL% 84.9 % (40-75); PLATELET COUNT 310 X10e3 (140-420); RED BLOOD COUNT 4.28 X10e (3.90-5.30); RED CELL DISTRIBUTION WIDTH 15.3 % (11.0-15.5); WHITE BLOOD COUNT 37.1 X10e3 (4.0-10.5)
[2017-01-29 08:49] LABS: PARTIAL THROMBOPLASTIN TIME 39.9 SECONDS (23.5-31.3); PROTHROMBIN TIME (PATIENT) 10.6 SECONDS (9.6-11.5)
[2017-01-29 08:54] LABS: AMPHETAMINE NEG (NEG); BARBITURATES NEG (NEG); BENZODIAZEPINES NEG (NEG); COCAINE NEG (NEG); MARIJUANA NEG (NEG); OPIATES NEG (NEG); TRICYCLIC ANTIDEPRESSANTS NEG (NEG); U METHADONE NEG (NEG)
[2017-01-29 09:12] LABS: ANISOCYTOSIS SL; PLATELET ESTIMATE NORMAL (NORMAL)
[2017-01-29 09:42] LABS: ALBUMIN SERUM 3.3 g/dL (3.5-5.0); ALKALINE PHOSPHATASE 130 U/L (32-92); ALT (SGPT) 17 U/L (10-40); AST (SGOT) 20 U/L (10-42); BILIRUBIN, DIRECT 0.1 mg/dL (0.0-0.2); BILIRUBIN,INDIRECT 1.8 mg/dL (0.0-0.9); BILIRUBIN,TOTAL 1.9 mg/dL (0.2-2.0); BLOOD UREA NITROGEN 40 mg/dL (9-23); BUN/CREATININE RATIO 13.79; CALCIUM SERUM 7.5 mg/dL (8.4-10.2); CHLORIDE 105 mmol/L (100-111); CREATININE SERUM 2.9 mg/dL (0.6-1.4); GLOM FILT RATE Estimated 19.6 mL/min (>60); PROTEIN TOTAL SERUM 6.4 g/dL (6.0-8.3); SALICYLATE <4.0 mg/dL; SODIUM 128 mmol/L (135-145)
[2017-01-29 09:45] LABS: GLUCOSE FASTING 928 mg/dL (70-110)
[2017-01-29 09:46] LABS: ACETAMINOPHEN <10 ug/mL; ALCOHOL BLOOD <5 mg/dL (0); CARBON DIOXIDE <5 mmol/L (22-31); POTASSIUM 7.5 mmol/L (3.5-5.1)
[2017-01-29 10:35] LABS: BETA HYDROXYBUTYRATE 10.9 MMOL/L (0.02-0.27)
[2017-01-29 13:19] LABS: BUN/CREATININE RATIO 13.66; CALCIUM SERUM 8.3 mg/dL (8.4-10.2); GLOM FILT RATE Estimated 18.8 mL/min (>60)
[2017-01-29 13:22] LABS: POTASSIUM 3.4 mmol/L (3.5-5.1)
[2017-01-29 13:31] LABS: %MB 1.7 % (0.0-4.0); MB 10.7 ng/ml
[2017-01-29 14:19] LABS: ARTERIAL BLOOD GAS CARBOXY HB 0.9 %sat (0.0-9.0); ARTERIAL BLOOD GAS HCO3 3.2 mmol/L; ARTERIAL BLOOD GAS MET HB 1.1 %sat (0.0-2.0); ARTERIAL BLOOD GAS PO2 86.9 mmHg (80.0-100)
[2017-01-29 14:20] LABS: ARTERIAL BLOOD GAS pH 6.967 (7.350-7.450)
[2017-01-29 14:21] LABS: ARTERIAL BLOOD GAS ART SITE RIGHT BRACHIAL; ARTERIAL BLOOD GAS DELIVERY NASAL CANNULA; ARTERIAL BLOOD GAS PCO2 13.8 mmHg (35.0-45.0); ARTERIAL DRAW? YES
[2017-01-29] MEDS ORDERED: PRINIVIL5 MG PO (14:25)
[2017-01-29 17:22] LABS: BUN/CREATININE RATIO 14.06; CREATININE SERUM 3.2 mg/dL (0.6-1.4); GLOM FILT RATE Estimated 17.4 mL/min (>60); POTASSIUM 3.1 mmol/L (3.5-5.1)
[2017-01-29 17:43] LABS: PHOSPHOROUS <1.0 mg/dL (2.5-4.6)
[2017-01-29 18:41] LABS: BUN/CREATININE RATIO 14.23; CALCIUM SERUM 7.6 mg/dL (8.4-10.2); CREATININE SERUM 2.6 mg/dL (0.6-1.4); GLOM FILT RATE Estimated 22.3 mL/min (>60); POTASSIUM 3.4 mmol/L (3.5-5.1)
[2017-01-29 18:51] LABS: %MB 2.1 % (0.0-4.0); MB 10.5 ng/ml
[2017-01-29 20:14] LABS: BUN/CREATININE RATIO 13.68; CALCIUM SERUM 7.7 mg/dL (8.4-10.2); CREATININE SERUM 1.9 mg/dL (0.6-1.4); GLOM FILT RATE Estimated 32.6 mL/min (>60); POTASSIUM 3.1 mmol/L (3.5-5.1)
[2017-01-29 20:18] LABS: ARTERIAL BLD GAS O2 SATURATION 97.4 % (90.0-100.0); ARTERIAL BLOOD GAS HCO3 18.9 mmol/L; ARTERIAL BLOOD GAS pH 7.423 (7.350-7.450)
[2017-01-29 20:20] LABS: INFLUENZA A NEG (NEG); INFLUENZA B NEG (NEG)
[2017-01-29 20:21] LABS: ARTERIAL BLOOD GAS ART SITE RIGHT BRACHIAL; ARTERIAL BLOOD GAS DELIVERY VENT; ARTERIAL BLOOD GAS VENT MODE AC; ARTERIAL DRAW? YES
[2017-01-29 23:17] LABS: BUN/CREATININE RATIO 9.44; CALCIUM SERUM 7.3 mg/dL (8.4-10.2); CREATININE SERUM 1.8 mg/dL (0.6-1.4); GLOM FILT RATE Estimated 34.8 mL/min (>60)
[2017-01-29 23:19] LABS: POTASSIUM 2.8 mmol/L (3.5-5.1)
[2017-01-30 04:20] LABS: ARTERIAL BLD GAS O2 SATURATION 98.2 % (90.0-100.0); ARTERIAL BLOOD GAS CARBOXY HB 0.7 %sat (0.0-9.0); ARTERIAL BLOOD GAS HCO3 19.3 mmol/L; ARTERIAL BLOOD GAS PCO2 30.8 mmHg (35.0-45.0); ARTERIAL BLOOD GAS pH 7.406 (7.350-7.450)
[2017-01-30 04:26] LABS: ARTERIAL BLOOD GAS ALLEN TEST NORMAL; ARTERIAL BLOOD GAS ART SITE LEFT RADIAL; ARTERIAL BLOOD GAS DELIVERY VENT; ARTERIAL BLOOD GAS VENT MODE AC; ARTERIAL DRAW? YES
[2017-01-30 06:27] LABS: BASOPHIL% 0.3 % (0-2.5); EOSINOPHIL% 0.1 % (0.0-7.0); HEMATOCRIT 30.6 % (35.0-45.0); HEMOGLOBIN 10.4 gm/dL (12.0-16.0); LYMPHOCYTE# 0.5 X10e3 (1.0-3.5); LYMPHOCYTE% 3.2 % (17.0-45.0); MEAN CORPUSCULAR HEMOGLOBIN 29.3 PG (28-34); MEAN PLATELET VOLUME 8.5 FL (6.5-11.5); MONOCYTE# 0.9 X10e3 (0-1.0); MONOCYTE% 5.9 % (3.0-12.0); NEUTROPHIL# 13.3 X10e3 (1.5-7.1); NEUTROPHIL% 90.5 % (40-75); PLATELET COUNT 186 X10e3 (140-420); RED BLOOD COUNT 3.56 X10e (3.90-5.30); RED CELL DISTRIBUTION WIDTH 13.8 % (11.0-15.5)
[2017-01-30 06:28] LABS: DIFF IND NO; MEAN CELL VOLUME 86.2 FL (83-96); WHITE BLOOD COUNT 14.6 X10e3 (4.0-10.5)
[2017-01-30 06:34] LABS: INR 1.1; PROTHROMBIN TIME (PATIENT) 11.1 SECONDS (9.6-11.5)
[2017-01-30 06:55] LABS: ALBUMIN SERUM 2.4 g/dL (3.5-5.0); ALKALINE PHOSPHATASE 81 U/L (32-92); ALT (SGPT) 15 U/L (10-40); AMYLASE 94 U/L (0-46); AST (SGOT) 24 U/L (10-42); BILIRUBIN,TOTAL 0.8 mg/dL (0.2-2.0); BLOOD UREA NITROGEN 22 mg/dL (9-23); BUN/CREATININE RATIO 8.46; CALCIUM SERUM 7.2 mg/dL (8.4-10.2); CARBON DIOXIDE 20 mmol/L (22-31); CHLORIDE 108 mmol/L (100-111); CPK (CREATINE PHOSPHOKINASE) 520 IU/L (26-140); CREATININE SERUM 2.6 mg/dL (0.6-1.4); GLOM FILT RATE Estimated 22.3 mL/min (>60); GLUCOSE FASTING 252 mg/dL (70-110); LIPASE 47 U/L (22-51); MAGNESIUM 1.3 mg/dL (1.6-3.0); PROTEIN TOTAL SERUM 4.9 g/dL (6.0-8.3); SODIUM 139 mmol/L (135-145)
[2017-01-30 07:10] LABS: POTASSIUM 2.9 mmol/L (3.5-5.1)
[2017-01-30 07:12] LABS: PHOSPHOROUS <1.0 mg/dL (2.5-4.6)
[2017-01-30 09:16] LABS: LEGIONELLA AG URINE NEG (NEG)
[2017-01-30 14:11] LABS: BUN/CREATININE RATIO 7.14; CREATININE SERUM 3.5 mg/dL (0.6-1.4); GLOM FILT RATE Estimated 15.6 mL/min (>60); PHOSPHOROUS 2.8 mg/dL (2.5-4.6); POTASSIUM 3.4 mmol/L (3.5-5.1)
[2017-01-31 03:54] LABS: ARTERIAL BLD GAS O2 SATURATION 97.5 % (90.0-100.0); ARTERIAL BLOOD GAS CARBOXY HB 0.5 %sat (0.0-9.0); ARTERIAL BLOOD GAS HCO3 22.2 mmol/L; ARTERIAL BLOOD GAS MET HB 1.2 %sat (0.0-2.0); ARTERIAL BLOOD GAS PCO2 35.9 mmHg (35.0-45.0); ARTERIAL BLOOD GAS pH 7.399 (7.350-7.450)
[2017-01-31 04:00] LABS: ARTERIAL BLOOD GAS ART SITE RIGHT BRACHIAL; ARTERIAL BLOOD GAS DELIVERY VENT; ARTERIAL DRAW? YES
[2017-01-31 04:01] LABS: ARTERIAL BLOOD GAS VENT MODE AC
[2017-01-31 06:03] LABS: BASOPHIL# 0.1 X10e3 (0-0.3); BASOPHIL% 0.5 % (0-2.5); EOSINOPHIL# 0.1 X10e3 (0-0.7); EOSINOPHIL% 0.8 % (0.0-7.0); HEMATOCRIT 26.5 % (35.0-45.0); HEMOGLOBIN 9.2 gm/dL (12.0-16.0); LYMPHOCYTE# 1.8 X10e3 (1.0-3.5); LYMPHOCYTE% 13.2 % (17.0-45.0); MEAN CELL VOLUME 86.6 FL (83-96); MEAN CORPUSCULAR HEMOGLOBIN 29.9 PG (28-34); MEAN CORPUSCULAR HGB CONC 34.6 g/dL (30-36); MEAN PLATELET VOLUME 8.4 FL (6.5-11.5); MONOCYTE# 0.7 X10e3 (0-1.0); MONOCYTE% 5.2 % (3.0-12.0); NEUTROPHIL# 10.8 X10e3 (1.5-7.1); NEUTROPHIL% 80.3 % (40-75); PLATELET COUNT 144 X10e3 (140-420); RED BLOOD COUNT 3.06 X10e (3.90-5.30); WHITE BLOOD COUNT 13.5 X10e3 (4.0-10.5)
[2017-01-31 06:08] LABS: DIFF IND NO
[2017-01-31 06:43] LABS: ALBUMIN SERUM 2.1 g/dL (3.5-5.0); BILIRUBIN,TOTAL 0.4 mg/dL (0.2-2.0); BUN/CREATININE RATIO 5.09; CALCIUM SERUM 7.6 mg/dL (8.4-10.2); CREATININE SERUM 5.1 mg/dL (0.6-1.4); GLOM FILT RATE Estimated 9.9 mL/min (>60); MAGNESIUM 1.8 mg/dL (1.6-3.0); PHOSPHOROUS 2.1 mg/dL (2.5-4.6); PROTEIN TOTAL SERUM 4.6 g/dL (6.0-8.3)
[2017-01-31 06:45] LABS: POTASSIUM 2.7 mmol/L (3.5-5.1)
[2017-01-31 15:54] LABS: BODY FLUID APPEARANCE CLOUDY; BODY FLUID SOURCE BRONCHIAL LAVAGE
[2017-01-31 18:06] LABS: ARTERIAL BLOOD GAS ALLEN TEST NORMAL; ARTERIAL BLOOD GAS ART SITE LEFT RADIAL; ARTERIAL BLOOD GAS CARBOXY HB 0.6 %sat (0.0-9.0); ARTERIAL BLOOD GAS DELIVERY VENT; ARTERIAL BLOOD GAS HCO3 24.5 mmol/L; ARTERIAL BLOOD GAS MET HB 0.1 %sat (0.0-2.0); ARTERIAL BLOOD GAS PCO2 31.3 mmHg (35.0-45.0); ARTERIAL BLOOD GAS PO2 90.3 mmHg (80.0-100); ARTERIAL BLOOD GAS VENT MODE CPAP; ARTERIAL BLOOD GAS pH 7.501 (7.350-7.450); ARTERIAL DRAW? YES
[2017-01-31 22:01] LABS: BUN/CREATININE RATIO 4.85; CALCIUM SERUM 7.4 mg/dL (8.4-10.2); CREATININE SERUM 3.5 mg/dL (0.6-1.4); GLOM FILT RATE Estimated 15.6 mL/min (>60); POTASSIUM 3.7 mmol/L (3.5-5.1)
[2017-02-01 03:32] LABS: HEMOGLOBIN 8.9 gm/dL (12.0-16.0); MEAN CELL VOLUME 87.1 FL (83-96); MEAN CORPUSCULAR HGB CONC 34.4 g/dL (30-36); MEAN PLATELET VOLUME 8.2 FL (6.5-11.5); RED BLOOD COUNT 2.98 X10e (3.90-5.30); RED CELL DISTRIBUTION WIDTH 14.1 % (11.0-15.5)
[2017-02-01 03:48] LABS: ARTERIAL BLD GAS O2 SATURATION 97.7 % (90.0-100.0); ARTERIAL BLOOD GAS CARBOXY HB 0.7 %sat (0.0-9.0); ARTERIAL BLOOD GAS HCO3 25.7 mmol/L; ARTERIAL BLOOD GAS MET HB 1.2 %sat (0.0-2.0); ARTERIAL BLOOD GAS PCO2 34.9 mmHg (35.0-45.0); ARTERIAL BLOOD GAS pH 7.475 (7.350-7.450)
[2017-02-01 03:52] LABS: ARTERIAL BLOOD GAS ALLEN TEST NORMAL; ARTERIAL BLOOD GAS ART SITE LEFT RADIAL; ARTERIAL BLOOD GAS DELIVERY VENT; ARTERIAL BLOOD GAS VENT MODE AC; ARTERIAL DRAW? YES
[2017-02-01 03:59] LABS: BUN/CREATININE RATIO 4.76; CALCIUM SERUM 7.5 mg/dL (8.4-10.2); CREATININE SERUM 4.2 mg/dL (0.6-1.4); GLOM FILT RATE Estimated 12.5 mL/min (>60); POTASSIUM 3.3 mmol/L (3.5-5.1)
[2017-02-01 08:45] LABS: ARTERIAL BLD GAS O2 SATURATION 98.2 % (90.0-100.0); ARTERIAL BLOOD GAS CARBOXY HB 0.5 %sat (0.0-9.0); ARTERIAL BLOOD GAS HCO3 26.8 mmol/L; ARTERIAL BLOOD GAS MET HB 0.8 %sat (0.0-2.0); ARTERIAL BLOOD GAS PCO2 34.2 mmHg (35.0-45.0); ARTERIAL BLOOD GAS pH 7.502 (7.350-7.450)
[2017-02-01 08:47] LABS: ARTERIAL BLOOD GAS ALLEN TEST NORMAL; ARTERIAL BLOOD GAS ART SITE LEFT RADIAL; ARTERIAL BLOOD GAS DELIVERY VENT; ARTERIAL BLOOD GAS VENT MODE CPAP; ARTERIAL DRAW? YES
[2017-02-01 09:47] LABS: ALBUMIN SERUM 2.3 g/dL (3.5-5.0); BILIRUBIN,TOTAL 0.6 mg/dL (0.2-2.0); CALCIUM SERUM 7.9 mg/dL (8.4-10.2); CREATININE SERUM 4.8 mg/dL (0.6-1.4); GLOM FILT RATE Estimated 10.6 mL/min (>60); MAGNESIUM 2.1 mg/dL (1.6-3.0); PHOSPHOROUS 2.3 mg/dL (2.5-4.6); POTASSIUM 3.6 mmol/L (3.5-5.1); PROTEIN TOTAL SERUM 5.1 g/dL (6.0-8.3)
[2017-02-02 04:19] LABS: ARTERIAL BLD GAS O2 SATURATION 96.2 % (90.0-100.0); ARTERIAL BLOOD GAS CARBOXY HB 0.9 %sat (0.0-9.0); ARTERIAL BLOOD GAS HCO3 24.1 mmol/L; ARTERIAL BLOOD GAS MET HB 0.8 %sat (0.0-2.0); ARTERIAL BLOOD GAS PCO2 31.6 mmHg (35.0-45.0); ARTERIAL BLOOD GAS PO2 85.4 mmHg (80.0-100); ARTERIAL BLOOD GAS pH 7.492 (7.350-7.450)
[2017-02-02 04:24] LABS: ARTERIAL BLOOD GAS ALLEN TEST NORMAL; ARTERIAL BLOOD GAS ART SITE LEFT RADIAL; ARTERIAL BLOOD GAS DELIVERY NASAL CANNULA; ARTERIAL DRAW? YES
[2017-02-02 05:20] LABS: HEMATOCRIT 27.6 % (35.0-45.0); HEMOGLOBIN 9.3 gm/dL (12.0-16.0); MEAN CELL VOLUME 89.8 FL (83-96); MEAN CORPUSCULAR HEMOGLOBIN 30.1 PG (28-34); MEAN CORPUSCULAR HGB CONC 33.5 g/dL (30-36); RED BLOOD COUNT 3.07 X10e (3.90-5.30); RED CELL DISTRIBUTION WIDTH 13.9 % (11.0-15.5); WHITE BLOOD COUNT 9.4 X10e3 (4.0-10.5)
[2017-02-02 06:40] LABS: ALBUMIN SERUM 2.2 g/dL (3.5-5.0); BILIRUBIN,TOTAL 0.6 mg/dL (0.2-2.0); BUN/CREATININE RATIO 5.3; CALCIUM SERUM 8.4 mg/dL (8.4-10.2); CREATININE SERUM 6.6 mg/dL (0.6-1.4); GLOM FILT RATE Estimated 7.2 mL/min (>60); MAGNESIUM 2.3 mg/dL (1.6-3.0); PHOSPHOROUS 2.4 mg/dL (2.5-4.6); POTASSIUM 3.7 mmol/L (3.5-5.1); PROTEIN TOTAL SERUM 4.6 g/dL (6.0-8.3)
[2017-02-02] MEDS ORDERED: LANTUS100 U/ML SUBQ (11:04)
[2017-02-02] MEDS ORDERED: JANUVIA100 MG PO (11:05)
[2017-02-02] MEDS ORDERED: PRAVASTATIN SOD80 MG PO (11:05)
[2017-02-02] MEDS ORDERED: METFORMIN HCL750 MG PO (11:05)
[2017-02-03 08:02] LABS: BASOPHIL% 0.3 % (0-2.5); EOSINOPHIL# 0.2 X10e3 (0-0.7); EOSINOPHIL% 2.7 % (0.0-7.0); HEMATOCRIT 31.6 % (35.0-45.0); HEMOGLOBIN 10.2 gm/dL (12.0-16.0); LYMPHOCYTE# 1.5 X10e3 (1.0-3.5); LYMPHOCYTE% 16.8 % (17.0-45.0); MEAN CELL VOLUME 90.4 FL (83-96); MEAN CORPUSCULAR HEMOGLOBIN 29.3 PG (28-34); MEAN CORPUSCULAR HGB CONC 32.4 g/dL (30-36); MEAN PLATELET VOLUME 8.4 FL (6.5-11.5); MONOCYTE# 1.3 X10e3 (0-1.0); MONOCYTE% 13.8 % (3.0-12.0); NEUTROPHIL% 66.4 % (40-75); PLATELET COUNT 159 X10e3 (140-420); RED BLOOD COUNT 3.49 X10e (3.90-5.30); RED CELL DISTRIBUTION WIDTH 13.8 % (11.0-15.5); WHITE BLOOD COUNT 9.1 X10e3 (4.0-10.5)
[2017-02-03 08:03] LABS: DIFF IND NO
[2017-02-03 08:12] LABS: INR 0.9; PARTIAL THROMBOPLASTIN TIME 25.2 SECONDS (23.5-31.3); PROTHROMBIN TIME (PATIENT) 9.9 SECONDS (9.6-11.5)
[2017-02-03 09:13] LABS: BUN/CREATININE RATIO 4.38; CALCIUM SERUM 8.3 mg/dL (8.4-10.2); CREATININE SERUM 5.7 mg/dL (0.6-1.4); GLOM FILT RATE Estimated 8.6 mL/min (>60); PHOSPHOROUS 2.7 mg/dL (2.5-4.6); POTASSIUM 4.1 mmol/L (3.5-5.1)
[2017-02-03 16:05] LABS: HEPARIN INDUCED PLT AB Negative (Negative); UFH HIGH DOSE 100 0 (()); UFH LOW DOSE 0.1 0 (()); UFH LOW DOSE 0.5 0 (())
[2017-02-04 00:48] LABS: HEP B SURFACE AG Nonreactive (Nonreactive); HEPATITIS B SURFACE ANTIBODY <5 mIU/mL (>=10)
[2017-02-04 05:55] LABS: HEMATOCRIT 28.2 % (35.0-45.0); HEMOGLOBIN 9.4 gm/dL (12.0-16.0); MEAN CELL VOLUME 89.7 FL (83-96); MEAN CORPUSCULAR HEMOGLOBIN 29.9 PG (28-34); MEAN CORPUSCULAR HGB CONC 33.3 g/dL (30-36); MEAN PLATELET VOLUME 8.1 FL (6.5-11.5); RED BLOOD COUNT 3.15 X10e (3.90-5.30); RED CELL DISTRIBUTION WIDTH 13.9 % (11.0-15.5); WHITE BLOOD COUNT 7.3 X10e3 (4.0-10.5)
[2017-02-04 06:36] LABS: ALBUMIN SERUM 2.3 g/dL (3.5-5.0); BILIRUBIN,TOTAL 0.5 mg/dL (0.2-2.0); BUN/CREATININE RATIO 4.3; CALCIUM SERUM 8.5 mg/dL (8.4-10.2); CREATININE SERUM 7.2 mg/dL (0.6-1.4); GLOM FILT RATE Estimated 6.5 mL/min (>60); POTASSIUM 4.4 mmol/L (3.5-5.1); PROTEIN TOTAL SERUM 5.5 g/dL (6.0-8.3)
[2017-02-05 06:41] LABS: BUN/CREATININE RATIO 3.77; CALCIUM SERUM 8.4 mg/dL (8.4-10.2); CREATININE SERUM 5.3 mg/dL (0.6-1.4); GLOM FILT RATE Estimated 9.4 mL/min (>60); MAGNESIUM 1.9 mg/dL (1.6-3.0); PHOSPHOROUS 3.9 mg/dL (2.5-4.6); POTASSIUM 4.5 mmol/L (3.5-5.1)
[2017-02-05 07:58] LABS: HEP B SURFACE AG Nonreactive (Nonreactive)
[2017-02-06 06:51] LABS: HEMATOCRIT 25.4 % (35.0-45.0); HEMOGLOBIN 8.5 gm/dL (12.0-16.0)
[2017-02-06 07:37] LABS: BUN/CREATININE RATIO 4.08; CALCIUM SERUM 8.6 mg/dL (8.4-10.2); CREATININE SERUM 7.1 mg/dL (0.6-1.4); GLOM FILT RATE Estimated 6.6 mL/min (>60); PHOSPHOROUS 4.8 mg/dL (2.5-4.6); POTASSIUM 3.7 mmol/L (3.5-5.1)
[2017-02-06 17:29] LABS: IRON SERUM 58 ug/dL (28-170); TOTAL IRON BINDING CAPACITY 353 ug/dL (269-535); TRANSFERRIN 252 mg/dL (192-382); TRANSFERRIN SATURATION 16 % (20-50)
[2017-02-07 05:57] LABS: BUN/CREATININE RATIO 2.94; CALCIUM SERUM 8.3 mg/dL (8.4-10.2); GLOM FILT RATE Estimated 9.9 mL/min (>60); POTASSIUM 3.5 mmol/L (3.5-5.1)
[2017-02-07 05:58] LABS: CREATININE SERUM 5.1 mg/dL (0.6-1.4)
[2017-02-07] MEDS ORDERED: ACETAMINOPHEN500 M2 PO (16:36)
[2017-02-07] MEDS ORDERED: ZOLOFT100 MG PO (16:37)
[2017-02-07] MEDS ORDERED: LIPITOR PO (16:38)
[2017-02-07] MEDS ORDERED: SINGULAIR PO (16:40)
[2017-02-07] MEDS ORDERED: PRILOSEC PO (16:41)
[2017-02-07] MEDS ORDERED: K-DUR10 MEQ PO (16:42)
[2017-02-07] MEDS ORDERED: ASPIRIN81 MG PO (16:43)
[2017-02-07] MEDS ORDERED: SYNTHROID100 MCG/5 PO (16:43)
[2017-02-07] MEDS ORDERED: QUESTRAN POWDER4 GM PO (16:44)
[2017-02-07] MEDS ORDERED: FERROUS GLUCON324 M1 PO (16:45)
[2017-02-07] MEDS ORDERED: LASIX PO (16:45)
[2017-02-07] MEDS ORDERED: OS-CAL 500 + D500 MG PO (16:46)
[2017-02-07] MEDS ORDERED: FENOFIBRATE160 MG PO (16:47)
[2017-02-07] MEDS ORDERED: DONEPEZIL HCL10 MG PO (16:57)
[2017-02-07] MEDS ORDERED: IMODIUM A-D2 M2 PO (16:58)
[2017-02-07] MEDS ORDERED: TOPROL XL50 MG PO (17:00)
[2017-02-07] MEDS ORDERED: DIGOX0.25 MG PO (17:00)
[2017-02-09 05:24] LABS: HEMATOCRIT 26.3 % (35.0-45.0); HEMOGLOBIN 8.7 gm/dL (12.0-16.0); MEAN CELL VOLUME 88.9 FL (83-96); MEAN CORPUSCULAR HEMOGLOBIN 29.3 PG (28-34); MEAN PLATELET VOLUME 7.6 FL (6.5-11.5); RED BLOOD COUNT 2.96 X10e (3.90-5.30); RED CELL DISTRIBUTION WIDTH 13.4 % (11.0-15.5); WHITE BLOOD COUNT 8.5 X10e3 (4.0-10.5)
[2017-02-09 06:05] LABS: ALBUMIN SERUM 2.6 g/dL (3.5-5.0); BILIRUBIN,TOTAL 0.4 mg/dL (0.2-2.0); BUN/CREATININE RATIO 4.33; CALCIUM SERUM 8.6 mg/dL (8.4-10.2); CREATININE SERUM 8.3 mg/dL (0.6-1.4); GLOM FILT RATE Estimated 5.5 mL/min (>60); PROTEIN TOTAL SERUM 5.6 g/dL (6.0-8.3)
[2017-02-10 02:15] LABS: HA AB IGM (HEPPAN) Nonreactive (()); HB CORE AB IGM (HEPPAN) Nonreactive (Nonreactive); HB S AG (HEPPAN) Nonreactive (Nonreactive); HEP C AB (HEPPAN) Nonreactive (Nonreactive); HEP C AB SIGNAL TO CUTOFF 0.01 ratio (<1.00); HEPATITIS B SURFACE ANTIBODY <5 mIU/mL (>=10)
[2017-02-10 10:34] LABS: BUN/CREATININE RATIO 3.33; CALCIUM SERUM 8.7 mg/dL (8.4-10.2); CREATININE SERUM 5.7 mg/dL (0.6-1.4); GLOM FILT RATE Estimated 8.6 mL/min (>60); POTASSIUM 4.2 mmol/L (3.5-5.1)
[2017-02-10] MEDS ORDERED: COMBIVENT U/D3 M2 INH (11:37)
[2017-02-10] MEDS ORDERED: FUROSEMIDE40 MG PO (11:38)
[2017-02-10] MEDS ORDERED: LEVEMIR100 UNITS/ SUBQ (11:39)
[2017-02-10] MEDS ORDERED: NEPHROCAPS QT1 EACH PO (11:40)
[2017-02-10] MEDS ORDERED: FAMOTIDINE20 MG PO (11:40)
[2017-02-10] MEDS ORDERED: NOVOLOG100 UNITS/ SUBQ (11:46)
== END 2017-02-10 14:39 | disposition home health service (06) | DRG 981 ==
LOC: CED 07:56 → CICCU2 10:17 → CEDOF 10:17 → CICCU2 13:00 → CEDOF 13:00 → CED 13:00 → CICCU2 13:03 → CEDOF 13:03 → CICCU2 01-30 07:36 → C5C 02-03 00:55
PROVIDERS: Emergency Medicine; Family Medicine; Internal Medicine; Internal Medicine Nephrology; Internal Medicine Pulmonary Disease; Radiology Diagnostic Radiology
PROC: 0BH17EZ Insertion of Endotracheal Airway into Trachea, Via Natural or Artificial Opening (ICD-10-PCS; principal; 2017-01-29)
PROC: 5A1945Z Respiratory Ventilation, 24-96 Consecutive Hours (ICD-10-PCS; 2017-01-29)
PROC: 5A1D60Z (ICD-10-PCS; 2017-01-29)
PROC: 05H333Z Insertion of Infusion Device into Right Innominate Vein, Percutaneous Approach (ICD-10-PCS; 2017-01-29)
PROC: B54MZZA Ultrasonography of Right Upper Extremity Veins, Guidance (ICD-10-PCS; 2017-01-29)
PROC: 0B9B8ZZ Drainage of Left Lower Lobe Bronchus, Via Natural or Artificial Opening Endoscopic (ICD-10-PCS; 2017-01-31)
PROC: 0B948ZZ Drainage of Right Upper Lobe Bronchus, Via Natural or Artificial Opening Endoscopic (ICD-10-PCS; 2017-01-31)
PROC: 0B9F8ZX Drainage of Right Lower Lung Lobe, Via Natural or Artificial Opening Endoscopic, Diagnostic (ICD-10-PCS; 2017-01-31)
PROC: 0B988ZZ Drainage of Left Upper Lobe Bronchus, Via Natural or Artificial Opening Endoscopic (ICD-10-PCS; 2017-01-31)
PROC: 0B998ZZ Drainage of Lingula Bronchus, Via Natural or Artificial Opening Endoscopic (ICD-10-PCS; 2017-01-31)
PROC: 0B968ZZ Drainage of Right Lower Lobe Bronchus, Via Natural or Artificial Opening Endoscopic (ICD-10-PCS; 2017-01-31)
PROC: 0B958ZZ Drainage of Right Middle Lobe Bronchus, Via Natural or Artificial Opening Endoscopic (ICD-10-PCS; 2017-01-31)
PROC: 05HM33Z Insertion of Infusion Device into Right Internal Jugular Vein, Percutaneous Approach (ICD-10-PCS; 2017-02-04)
PROC: B513YZA Fluoroscopy of Right Jugular Veins using Other Contrast, Guidance (ICD-10-PCS; 2017-02-04)
PROC: B543ZZA Ultrasonography of Right Jugular Veins, Guidance (ICD-10-PCS; 2017-02-04)
DX: E13.10 Other specified diabetes mellitus with ketoacidosis without coma (principal); J69.0 Pneumonitis due to inhalation of food and vomit; J96.01 Acute respiratory failure with hypoxia; N17.0 Acute kidney failure with tubular necrosis; T68.XXXA Hypothermia, initial encounter; E43 Unspecified severe protein-calorie malnutrition; G92 Toxic encephalopathy; M62.82 Rhabdomyolysis; N18.6 End stage renal disease; E87.1 Hypo-osmolality and hyponatremia; I12.0 Hypertensive chronic kidney disease with stage 5 chronic kidney disease or end stage renal disease; E83.39 Other disorders of phosphorus metabolism; E78.5 Hyperlipidemia, unspecified; E87.5 Hyperkalemia; F17.210 Nicotine dependence, cigarettes, uncomplicated; Z79.4 Long term (current) use of insulin; Z82.49 Family history of ischemic heart disease and other diseases of the circulatory system; E86.0 Dehydration; R00.0 Tachycardia, unspecified; D64.9 Anemia, unspecified; E66.01 Morbid (severe) obesity due to excess calories; Z68.35 Body mass index [BMI] 35.0-35.9, adult; Z99.2 Dependence on renal dialysis
CPT/HCPCS: 36415; 36556; 36600; 51702; 70450; 71010; 74000; 74176; 76770; 76937; 77001; 80048; 80053; 80074; 80076; 80307; 81003; 82010; 82140; 82150; 82308; 82550; 82553; 82803; 82947; 83036; 83540; 83550; 83605; 83690; 83735; 84100; 84484; 84703; 85014; 85018; 85025; 85027; 85610; 85652; 85730; 86022; 86706; 87040; 87070; 87102; 87106; 87116; 87205; 87206; 87252; 87254; 87278; 87340; 87449; 87493; 87633; 87804; 87806; 87899; 88108; 88305; 88312; 89051; 92526; 92610; 93005; 94002; 94003; 94760; 96361; 96374; 96375; 97110; 97161; 97166; 97530; 97535; 99291; C1725; C1750; C1769; C1894; C9113; G0480; J0171; J0690; J1644; J1650; J1756; J1815; J2150; J2250; J2405; J2543; J3010; J3475; J3480; Q4081